=== PATIENT | male | born 1955 | race Caucasian/White ===

== ENCOUNTER 2019-07-15 09:06 | Outpatient (CLI) | payer MEDICARE, SELFPAY ==
--- NOTE | 2019-07-15 11:00 | NEURO_ITS ---
Patient Number: [id number] Impression: # Complains of numbness of hands. # Mild bilateral early Carpal Tunnel Syndrome. 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 # Needle/EMG exam suggestive of early denervation in ulnar muscles. Nerve Conduction Studies Anti Sensory Summary Table Stim Site NR Peak (ms) P-T Amp (?V) Site1 Site2 Delta-P (ms) Dist (cm) Bari (m/s) Left Median Anti Sensory (2-3nd Digit) Wrist 3.7 55.7 Wrist 2-3nd Digit 3.7 14.0 38 Wrist 3.5 58.3 Wrist 2-3nd Digit 3.7 14.0 38 Right Median Anti Sensory (2-3nd Digit) Wrist 4.0 50.1 Wrist 2-3nd Digit 4.0 14.0 35 Wrist 4.1 27.0 Wrist 2-3nd Digit 4.0 14.0 35 Left Radial Anti Sensory (Base 1st Digit) Wrist 2.8 52.0 Wrist Base 1st Digit 2.8 0.0 Right Radial Anti Sensory (Base 1st Digit) Wrist 3.2 17.9 Wrist Base 1st Digit 3.2 0.0 Left Ulnar Anti Sensory (5th Digit) Wrist 3.6 52.3 Wrist 5th Digit 3.6 14.0 39 Right Ulnar Anti Sensory (5th Digit) Wrist 3.3 29.5 Wrist 5th Digit 3.3 14.0 42 Motor Summary Table Stim Site NR Onset (ms) O-P Amp (mV) Site1 Site2 Delta-0 (ms) Dist (cm) Bari (m/s) Left Median Motor (Abd Poll Brev) Wrist 4.3 1.7 Elbow Wrist 5.5 31.0 56 Elbow 9.8 0.8 Right Median Motor (Abd Poll Brev) Wrist 4.5 4.3 Elbow Wrist 5.9 33.0 56 Elbow 10.4 2.2 Left Ulnar Motor (Abd Dig Minimi) Wrist 3.3 7.1 A Elbow Wrist 6.7 32.0 48 A Elbow 10.0 7.2 B Elbow Wrist 4.5 22.0 49 B Elbow 7.8 1.9 Right Ulnar Motor (Abd Dig Minimi) Wrist 3.4 6.7 A Elbow Wrist 7.0 31.0 44 A Elbow 10.4 5.5 B Elbow Wrist 4.5 22.0 49 B Elbow 7.9 5.5 F Wave Studies NR F-Lat (ms) L-R F-Lat (ms) Left Median (Mrkrs) (Abd Poll Brev) 30.79 0.41 Right Median (Mrkrs) (Abd Poll Brev) 31.20 0.41 Left Ulnar (Mrkrs) (Abd Dig Min) 29.66 1.31 Right Ulnar (Mrkrs) (Abd Dig Min) 30.97 1.31 EMG Side Muscle Nerve Root Ins Act Fibs Amp Dur Recrt Comment Right 1stDorInt Ulnar C8-T1 Nml Nml Nml >12ms Nml Right Ext Indicis Radial (Post Int) C7-8 Nml Nml Nml Nml Nml Right Ext Digitorum Radial (Post Int) C7-8 Nml Nml Nml Nml Nml Right BrachioRad Radial C5-6 Nml Nml Nml Nml Nml Right PronatorTeres Median C6-7 Nml Nml Nml Nml Nml Right Abd Poll Brev Median C8-T1 Nml Nml Nml Nml Nml Left 1stDorInt Ulnar C8-T1 Nml Nml Nml >12ms Nml Left Ext Indicis Radial (Post Int) C7-8 Nml Nml Nml Nml Nml Left Ext Digitorum Radial (Post Int) C7-8 Nml Nml Nml Nml Nml Left BrachioRad Radial C5-6 Nml Nml Nml Nml Nml Left PronatorTeres Median C6-7 Nml Nml Nml Nml Nml Left Abd Poll Brev Median C8-T1 Nml Nml Nml Nml Nml Right ABD Dig Min Ulnar C8-T1 Nml Nml Nml >12ms Nml Left ABD Dig Min Ulnar C8-T1 Nml Nml Nml >12ms Nml MTDD
== END 2019-07-15 09:07 | disposition home or self-care (01) ==
PROVIDERS: PCP Family Medicine; Visit Provider Orthopaedic Surgery
DX: M79.641 Pain in right hand (principal); G56.03 Carpal tunnel syndrome, bilateral upper limbs
CPT/HCPCS: 95886; 95911

== ENCOUNTER 2019-07-28 10:07 | Outpatient (CLI) | payer MEDICARE, SELFPAY ==
--- NOTE | 2019-07-28 | ECG_ITS ---
Measurements Intervals [place] Rate: 69 P: MD: 0 QRS: -21 QRSD: 98 T: -4 QT: 370 QTc: 399 Interpretive Statements SINUS RHYTHM WITH SINUS ARRHYTHMA ATRIAL PREMATURE COMPLEXES CANNOT RULE OUT SEPTAL INFARCT, AGE INDETERMINATE NONSPECIFIC ST ELEVATION IN ANTEROLATERAL LEADS- PROBABLY REPOLARIZATION BORDERLINE T WAVE ABNORMALITY- INFERIOR LEADS ABNORMAL ECG Electronically Signed On 07-28-2019 10:41:08 CDT by Shamar Macario D.O.
[2019-07-28 11:09] LABS: Blood Urea Nitrogen 12 mg/dL (9-20); Calcium 9.4 mg/dL (8.4-10.2); Carbon Dioxide 34 mmol/L (22-30); Chloride 101 mmol/L (98-107); Estimated Glomerular Filt Rate 56; Glucose 103 mg/dL (75-110); Sodium 139 mmol/L (137-145)
== END 2019-07-28 10:08 | disposition home or self-care (01) ==
LOC: ANHLAB 10:11
PROVIDERS: PCP Family Medicine; Visit Provider Orthopaedic Surgery
DX: I49.8 Other specified cardiac arrhythmias (principal); I10 Essential (primary) hypertension
CPT/HCPCS: 36415; 80048; 93005

== ENCOUNTER 2020-02-24 16:29 | Emergency (ER) | payer MEDICARE, SELFPAY ==
--- NOTE | ~2020-02-24 | XR_ITS ---
XR hand RT min 3V DATE: 02/24/2020 17:27 INDICATION: Fall. Multiple lacerations at fifth digit. TECHNIQUE: 3 views of right hand, plus additional lateral view of fifth digit with right hand COMPARISON: 06/06/2016 right hand FINDINGS: There is polyarticular osteoarthritis including the first metacarpophalangeal and multiple interphalangeal joints. There is juxta-articular osteopenia at the metacarpophalangeal and interphalangeal joints. Old healed avulsion fracture of the dorsal base of the distal phalanx of the fifth digit. No recent fracture or dislocation is evident. No periosteal reaction or bone destruction. No erosive change or chondrocalcinosis. No soft tissue radiopaque foreign body is detected. IMPRESSION: No fracture or dislocation detected; no radiopaque soft tissue foreign body Reviewed, dictated and finalized at location B. NESS OBJECTS CONSULTANT IMPRESSION: No fracture or dislocation detected; no radiopaque soft tissue fore ign body
[2020-02-24 17:03] VITALS: BP 164/104; PULSE 73; RESP 18; TEMP 37.5; O2SAT 97
[2020-02-24] MEDS: ACETAMINOPHEN 500 MG TABLET 1000 MG PO (17:27)
[2020-02-24] MEDS: TETANUS,DIPHTHERIA,AC PERTUSSIS ADULT (0.5 ML) BOOSTRIX IM (17:29)
--- NOTE | 2020-02-24 18:26 | ED.WOUNDLAC ---
HPI - Wound/Laceration General Chief Complaint: Wound/Laceration Stated Complaint: finger lac Time Seen by Provider: 02/24/20 16:47 Source: patient and family Mode of arrival: ambulatory Limitations: no limitations History of Present Illness HPI narrative: This patient is a 64 year old male who presents for evaluation of right hand lacerations. He states he accidentally got his fingers caught in the trash can. He denies hitting his head or headache. He has no other complaints. He is unsure of his last tetanus. He denies any numbness or tingling. Related Data Allergies Allergy/AdvReac Type Severity Reaction Status Date / Time No Known Allergies Allergy Verified 02/24/20 16:52 Review of Systems Review of Systems: All systems reviewed & are unremarkable except as noted in HPI and below PMFSH Past Medical History Medical History (Updated 02/24/20 @ 20:53 by Belinda Johnson MD) Epilepsy Essential hypertension Hypothyroidism, unspecified Surgical History Surgical History (Updated 02/24/20 @ 18:27 by Belinda Johnson MD) H/O prostatectomy Hx of tonsillectomy Family History Family History Sibling Cerebrovascular accident Family history of diabetes mellitus in first degree relative Father Family history of lung cancer Other Hypertension Social History Social History Smoking status: Never smoker Alcohol intake: never Gender identity (if verbalized by the patient): Male Exam Const: General: no acute distress and alert Orientation/consciousness: patient oriented x3 HENMT: Head: normocephalic and atraumatic Face and sinus: face symmetric Eyes: Pupils: Equal, round and reactive pupils present EOM: EOMs intact bilaterally Neck: Neck: normal visual inspection and no lymphadenopathy Resp: Effort & Inspection: normal respiratory effort and no retractions Auscultation: clear to auscultation bilaterally Cardio: Rate: regular rate Rhythm: regular rhythm Heart sounds: no murmurs GI: GI Palp: Yes Soft to palpation, No Tenderness to palpation present (GI) and No Guarding due to palpation present (GI) Auscultation: normal bowel sounds Neuro: General: patient oriented x3 and moves all extremities Other: hand tremor resting Extrem: Other: right hand - subungal ecchymosis right thumb; irregular laceration on proximal 5th finger on palmar aspect approximate 2 cm - able to seen tendon intact, no bleeding, able to flex and extend finger; there is puncture wound to 5th finger pad; 1 cm laceration of finger pad 4th finger palmar aspect, not deep Psych: Mental Status: mental status grossly normal Affect: normal affect Attitude: cooperative Course Reevaluation(s) Reevaluation #1: I have discussed with patient xray and discharge instructions. Date: 02/24/20 Time: 20:15 Vital Signs Vital signs: Vital Signs Temperature 99.5 F 02/24/20 17:03 Pulse Rate 73 02/24/20 17:03 Respiratory Rate 18 02/24/20 17:03 Blood Pressure 164/104 H 02/24/20 17:03 Pulse Oximetry 97 02/24/20 17:03 Temperature 99.6 F 02/24/20 18:58 Pulse Rate 76 02/24/20 21:16 Respiratory Rate 20 02/24/20 21:16 Blood Pressure 131/88 02/24/20 21:16 Pulse Oximetry 95 02/24/20 21:16 Procedures Laceration Laceration 1: Date: 02/24/20 Time: 19:45 Site: hand (right 5th finger) Side (If applicable): right Size (cm): 2 Description: flap and irregular Depth: simple, single layer Local Anesthetic: lidocaine 2% and none (digit block) Amount of anesthesia used (mL): 3 Pre-repair: irrigated, minor debridement and deep structures intact ====== Skin Level ====== Skin layer closed with: prolene Size (cm): 4-0 Number of sutures: 9 Technique: simple, interrupted ====== Subcutaneous Layer ======
[2020-02-24 18:58] VITALS: BP 136/94; PULSE 75; RESP 18; TEMP 37.6; O2SAT 96
[2020-02-24 21:16] VITALS: BP 131/88; PULSE 76; RESP 20; O2SAT 95
== END 2020-02-24 21:18 | disposition home or self-care (01) ==
PROVIDERS: Emergency Provider General Practice; PCP Family Medicine
DX: S61.216A Laceration without foreign body of right little finger without damage to nail, initial encounter (principal); S61.214A Laceration without foreign body of right ring finger without damage to nail, initial encounter; S60.111A Contusion of right thumb with damage to nail, initial encounter; G40.909 Epilepsy, unspecified, not intractable, without status epilepticus; I10 Essential (primary) hypertension; E03.9 Hypothyroidism, unspecified; Z23 Encounter for immunization; W23.0XXA Caught, crushed, jammed, or pinched between moving objects, initial encounter
CPT/HCPCS: 12002; 73130; 90471; 90715; 99283; A9270

== ENCOUNTER 2020-05-10 16:10 | Outpatient (CLI) | payer MEDICARE, SELFPAY ==
--- NOTE | ~2020-05-10 | XR_ITS ---
EXAMINATION: [id number] EXAM DATE: 05/10/2020 17:02 INDICATION: Initial encounter following injury, with pain of the right ribs. TECHNIQUE: Frontal projection of the upper right ribs, frontal projection of the lower right ribs, ob lique projection of the right ribs, frontal chest x-ray(s) for interpretation. There is no prior mi dy for comparison. FINDINGS: There is acute closed posttraumatic nondisplaced fracture of the right 8th rib laterally. T his finding has been indicated, marked on the examination for review, clinical correlation. There i s right 11th rib fracture laterally which appears likely healed, chronic. There is no soft tissue ab normality seen. No confluent consolidation, pneumothorax or pleural effusion suspected. Cardiomediast inal silhouette is normal. Pack for what is most likely deep brain stimulator. IMPRESSION: Acute right 8th rib fracture laterally. Reviewed, dictated and finalized at location A.
== END 2020-05-10 16:11 | disposition home or self-care (01) ==
LOC: ANHIMG 16:22
PROVIDERS: PCP Family Medicine; Visit Provider Nurse Practitioner Family
DX: R07.89 Other chest pain (principal); S22.31XA Fracture of one rib, right side, initial encounter for closed fracture; X58.XXXA Exposure to other specified factors, initial encounter
CPT/HCPCS: 71101

== ENCOUNTER 2020-11-24 13:30 | Outpatient (RCR) | payer MEDICARE, SELFPAY ==
--- NOTE | 2020-09-14 16:23 | PTOPEVAL ---
Thank you for referring Joshua Armijo to [facility].? The patient is scheduled to be seen for therapy? 1-2 x/week for 8 weeks. Please review, sign, date and return this plan of care FLOWER. I agree with and certify that the following plan of care is medically necessary. Referring Physician Date Attending Provider: Lynette Saha NP Diagnosis fall. Additional Evaluation Detail He was pushing carts at the [employer] when he had a fall 2017. He uses a quad cane for mobility. 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 Subjective Information He has 3 falls a month.Falls Query Text:As Reported By Patient/ happen with walking. He denies Family any previous therapy to address his falls. He will walk in the house at times without the cane. He spends most of his day sitting with no regular fitness or walking program. He only leaves the house for pentecostalism or doctor's visits. Prior Level of Function Home Setting Home Type Condo/Duplex/Townhouse Environmental Barriers Radha, Carpet,Radha, Hardwood,Stairs, None Living Situation With Spouse Support Available Local Family Support,Physical Assist Available Mobility Assistive Devices (Used Last 3 Cane, Small Based Quad Months) Pain Assessment Self Report Self Report Pain Level 0 Lower Extremity Muscle Strength Testing General Lower Extremity Strength Gross Lower Extremity Strength grossly 5/5 except yenifer hip ext and abduction 3+/5 Upper Motor Neuron Tests Upper Motor Neuron Tests Left Upper Motor Neuron Tests tremors of right hand Balance Assessment Leong Balance Assessment LEONG Balance Evaluation Total Score (34/56 points) Time Up Go (TUG) Timed Up and Go Test (TUG) (Seconds) 18 Assistive Devices None Functional Reach Test Functional Reach Test Trial 1 (Inches) 10 Functional Reach Test Trial 2 (Inches) 10 Functional Reach Test Average Score ( 10.0 Inches) Functional Reach Test Fall Risk Unlikely to Fall Gait Assessment Gait Assessment Ambulation Assistive Devices Cane, Small Base Quad Ambulation Distance 130 Query Text:(Feet) Additional Ambulation Comments poor sequencing with cane loss of balance, but able to recover without assistance Gait Pattern A
--- NOTE | 2020-10-13 13:33 | PCPTNOTE ---
Patient called & cancelled scheduled appointment this date due to falling.
--- NOTE | 2020-10-20 13:22 | PCPTNOTE ---
Patient did not show up for scheduled appointment this date.
--- NOTE | 2020-10-27 12:17 | PTOPEVAL ---
Physical Therapy progress note Thank you for referring Joshua Armijo to [facility].? See summary below for detail for progress and updated goals. The patient is scheduled to be seen for therapy?1 x/week for 4 weeks. Please review, sign, date and return this plan of care FLOWER. I agree with and certify that the following plan of care is medically necessary. Referring Physician Date Attending Provider: Lynette Saha NP Diagnosis fall. Additional Evaluation Detail He was pushing carts at the [employer] when he had a fall 2017. He uses a quad cane for mobility. 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 Subjective Information He had a fall last week when Query Text:As Reported By Patient/ carrying something without his Family walker. He does not use a device in the house. He only uses the ww when outside. Pain Assessment Timing of Pain Assessment Timing of Pain Assessment Re-assessment Self Report Self Report Pain Level 0 Pain Score Pain Score 0: Self Report Lower Extremity Muscle Strength Testing General Lower Extremity Strength Gross Lower Extremity Strength yenifer hip ext improved to 4/5 and yenifer abduction remains: 3+/ 5 Balance Assessment BURR Balance Evaluation Total Score (32/56 points) Time Up Go (TUG) Timed Up and Go Test (TUG) (Seconds) 30 Assistive Devices Walker, Wheeled Comments walked past target with decreased balance and safety TUG without AD: 18 sec 5 Time Sit to Stand Time in Seconds 21 5 Time Sit to Stand Comments without UE support Gait Assessment Gait Pattern Assessment Gait Pattern Ataxic Gait,Shuffled Gait,Wide Based Gait Gait Pattern Observed Decreased Stride Length - Left ,Decreased Stride Length - Right,Decreased Weight Shift - Left,Excessive Knee Flex - Right,No Heel Strike - Left,No Heel Strike - Right Other Gait Observations yenifer LE ext. rotation with left > right, lacks clearance of right LE during gt cycle 2 Minute Walk Total Distance Walked (feet) 193 2 Minute Walk Gait Speed Score (feet/ 1.60 second) 2 Minute Walk Test Comments use of ww PT Clinical Summary Pt referred to therapy due to
--- NOTE | 2020-11-24 14:46 | PTOPEVAL ---
Physical Therapy Discharge Summary Thank you for referring Joshua Armijo to [facility].? Joshua has reached maximal potential with skilled therapy services at this time. Will DC skilled therapy services with recommendations for continued HEP, use of walker 100% and slowing movement to decrease risk for falls. Please review, sign, date and return this discharge summary FLOWER. I agree with and certify that the following plan of care is medically necessary. Referring Physician Date Attending Provider: Lynette Saha NP Diagnosis fall. Additional Evaluation Detail He was pushing carts at the [employer] when he had a fall 2017. He uses a quad cane for mobility. 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 Subjective Information He continues to demonstrate 3+ Query Text:As Reported By Patient/ falls a month per . He Family refuses to use the walker in the house. He does feel like he is able to walk better on level surfaces and steps. He is performing his HEP, but only performing 2 of the exercises. Lower Extremity Muscle Strength Testing General Lower Extremity Strength Gross Lower Extremity Strength yenifer hip ext improved to 4+/5 and yenifer abduction remains: 4-/ 5 Transfer Assessment Chair Transfer Assessment Ambulation Assistive Devices Walker, Wheeled Chair Transfer Comments poor balance with initial sit< >stand from chair in lobby with cues for safety, improved technique and balance during remaining treatment. Poor insight to safety, balance and impairments. Floor Transfer Assessment Ambulation Assistive Devices None Floor Transfer Destination Mat Sit to Floor Transfer Ability Independent Floor to Sit Transfer Ability Independent Stand to Floor Transfer Ability Independent Floor to Stand Transfer Ability Independent Floor Transfer Ability Independent Balance Assessment BURR Balance Evaluation Total Score (33/56 points) Time Up Go (TUG) Timed Up and Go Test (TUG) (Seconds) 29 Assistive Devices Walker, Wheeled Comments decreased balance and safety unless cues provided, then demo improved safety with slowing of task and movement TUG without
== END 2020-11-26 08:50 | disposition home or self-care (01) ==
LOC: ANHPT 13:30
PROVIDERS: PCP Family Medicine; Visit Provider Nurse Practitioner Family
DX: R07.89 Other chest pain (principal); W19.XXXD Unspecified fall, subsequent encounter; Z68.26 Body mass index [BMI] 26.0-26.9, adult
CPT/HCPCS: 97110; 97112; 97116; 97163; 97530

== ENCOUNTER 2021-01-04 09:28 | Outpatient (CLI) | payer MEDICARE, SELFPAY ==
[2021-01-04 10:02] LABS: Basophils Absolute Auto 0.1 K/mm3 (0.0-0.1); Basophils Percent Auto 0.9 % (0.2-1.2); Eosinophils Absolute Auto 0.1 K/mm3 (0-0.3); Eosinophils Percent Auto 1.4 % (0-4.4); Hemoglobin 17.1 g/dL (14.0-18.0); Immature Granulocyte Absolute 0.07 K/mm3 (0.00-0.031); Immature Granulocyte Percent A 1.1 % (0-0.5); Lymphocytes Absolute Auto 1.41 K/mm3 (0.9-3.2); Lymphocytes Percent Auto 21.6 % (18.3-44.2); Mean Corpuscular HGB Conc 32.9 g/dl (32-36); Mean Corpuscular Hemoglobin 30.8 pg (26-34); Mean Corpuscular Volume 93.5 fl (80-100); Mean Platelet Volume 9.5 fl (7.4-10.4); Monocytes Absolute Auto 0.7 K/mm3 (0.1-0.6); Monocytes Percent Auto 11.3 % (2.6-8.5); Neutrophils Absolute Auto 4.2 K/mm3 (1.3-6.7); Neutrophils Percent Auto 63.7 % (45.5-73.1); Platelet Count Result 201 k/mm3 (150-375); Red Blood Count 5.56 M/mm3 (4.6-6.20); Red Cell Distribution Width 13.1 % (11.5-14.5); White Blood Count 6.5 K/mm3 (4.5-10.0)
[2021-01-04 10:15] LABS: Anion Gap 8 mmol/L (8-16); Blood Urea Nitrogen 13 mg/dL (9-20); Calcium 9.3 mg/dL (8.4-10.2); Carbon Dioxide 29 mmol/L (22-30); Chloride 101 mmol/L (98-107); Cholesterol 128 mg/dL (0-200); Estimated Glomerular Filt Rate > 60; Glucose 101 mg/dL (65-110); HDL Direct 37 mg/dL; Potassium 4.2 mmol/L (3.4-5.0); Sodium 138 mmol/L (137-145); Triglycerides 107 mg/dL (<150)
[2021-01-04 10:26] LABS: LDL Cholesterol Direct 69 mg/dL
[2021-01-04 10:46] LABS: Prostate Specific Antigen < 0.1 ng/mL (< OR = 4.0)
== END 2021-01-04 09:29 | disposition home or self-care (01) ==
PROVIDERS: PCP Family Medicine; Visit Provider Physician Assistant Medical
DX: E03.9 Hypothyroidism, unspecified (principal); Z13.220 Encounter for screening for lipoid disorders; I10 Essential (primary) hypertension; C61 Malignant neoplasm of prostate
CPT/HCPCS: 36415; 80048; 80061; 84153; 84443; 85025

== ENCOUNTER 2021-03-19 19:13 | Emergency (ER) | payer MEDICARE, SELFPAY ==
[2021-03-19 19:16] VITALS: BP 130/81; PULSE 87; RESP 18; TEMP 35.8; O2SAT 97
--- NOTE | 2021-03-19 20:54 | PC.NURSE ---
attempted to give urine sample but was not enough to sent to lab. blood tinge and small clot noted in the small sample.
--- NOTE | 2021-03-19 21:36 | ED.MALEGU ---
HPI - Male Genitourinary General Chief complaint: Urogenital-Male Stated complaint: hematuria Time Seen by Provider: 03/19/21 21:35 Source: patient Mode of arrival: ambulatory Limitations: no limitations History of Present Illness HPI Narrative: Patient is 65 years old white male presented to the ED with blood in the urine noticed earlier today. Patient had similar history of unknown etiology. Patient denies any fever, chills, nausea, vomiting, abdominal pain. Patient been following with urologist for unknown reason patient does not take blood thinner at home Related Data Home Medications Medication Instructions Recorded Confirmed lacosamide 200 mg tablet 200 mg PO Q12H 12/23/20 01/03/21 Allergies Allergy/AdvReac Type Severity Reaction Status Date / Time No Known Allergies Allergy Verified 03/19/21 19:19 Review of Systems Review of Systems: CONSTITUTIONAL: Denies fever, chills, or sweats. EYES: Denies visual changes, redness, or discharge. ENT: Denies rhinorrhea, congestion, sore throat, or otalgia. CARDIOVASCULAR: Denies chest pain, palpitations, or edema. RESPIRATORY: Denies cough or dyspnea. GASTROINTESTINAL: Denies abdominal pain, nausea, vomiting, or diarrhea. GENITOURINARY: Denies dysuria or hematuria. SKIN: Denies rash or itching. MUSCULOSKELETAL: Denies back pain, joint pain, or myalgia. NEUROLOGIC: Denies headache, numbness, or weakness. PSYCHIATRIC: Denies anxiety or depression. 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 Musculoskeletal: Normal range of motion, nontender back Neurologic: Alert and oriented ?3, CAR HIKER is normal as tested, no gross motor deficit Course Course Emergency Course: Stable Vital Signs Vital signs: Vital Signs Temperature 35.8 C L 03/19/21 19:16 Pulse Rate 87 03/19/21 19:16 Respiratory Rate 18 03/19/21 19:16 Blood Pressure 130/81 03/19/21 19:16 Pulse Oximetry 97 03/19/21 19:16 Temperature 35.8 C L 03/19/21 19:16 Pulse Rate 90 03/19/21 21:41 Respiratory Rate 18 03/19/21 21:41 Blood Pressure 136/81 03/19/21 21:41 Pulse Oximetry 95 03/19/21 21:41 MDM - Male Genitourinary MDM Narrative Medical decision making narrative: Patient presents with hematuria Differential Diagnosis Differential diagnosis: Likely urinary tract infection and acute retention of
[2021-03-19 21:41] VITALS: BP 136/81; PULSE 90; RESP 18; O2SAT 95
[2021-03-19 21:57] LABS: Add Urine Microscopic? YES; Appearance Urine Cloudy (Clear); Bilirubin Urine Negative (Negative); Blood Urine 3+ (Negative); Color Urine Yellow (Yellow); Glucose Urine UA Negative (Negative); Ketones Urine Negative (Negative); Leukocyte Esterase Ur Trace LEU/UL (Negative); Nitrate Urine Negative (Negative); Protein Urine 3+ mg/dL (Negative); RBC Urine >75 /hpf (0-2); Urobilinogen Urine Negative mg/dL (<2.0); WBC Urine >75 /hpf
[2021-03-19] MEDS: CIPROFLOXACIN 500 MG TAB PO (22:34)
[2021-03-19] MEDS: SODIUM CHLORIDE 0.9% IV 1,000 ML 999 ML IV CONT (22:35)
[2021-03-19 22:38] LABS: Basophils Absolute Auto 0.1 K/mm3 (0.0-0.1); Basophils Percent Auto 0.6 % (0.2-1.2); Eosinophils Absolute Auto 0.2 K/mm3 (0-0.3); Eosinophils Percent Auto 1.7 % (0-4.4); Hematocrit 48.1 % (42.0-52.0); Hemoglobin 16.2 g/dL (14.0-18.0); Immature Granulocyte Absolute 0.05 K/mm3 (0.00-0.031); Immature Granulocyte Percent A 0.5 % (0-0.5); Lymphocytes Absolute Auto 1.25 K/mm3 (0.9-3.2); Lymphocytes Percent Auto 11.9 % (18.3-44.2); Mean Corpuscular HGB Conc 33.7 g/dl (32-36); Mean Corpuscular Hemoglobin 30.8 pg (26-34); Mean Corpuscular Volume 91.4 fl (80-100); Mean Platelet Volume 9.8 fl (7.4-10.4); Monocytes Absolute Auto 1.3 K/mm3 (0.1-0.6); Neutrophils Absolute Auto 7.7 K/mm3 (1.3-6.7); Neutrophils Percent Auto 73.3 % (45.5-73.1); Platelet Count Result 200 k/mm3 (150-375); Red Blood Count 5.26 M/mm3 (4.6-6.20); Red Cell Distribution Width 12.8 % (11.5-14.5); White Blood Count 10.5 K/mm3 (4.5-10.0)
[2021-03-19 22:49] LABS: Anion Gap 3 mmol/L (8-16); Blood Urea Nitrogen 16 mg/dL (9-20); Calcium 9.3 mg/dL (8.4-10.2); Carbon Dioxide 31 mmol/L (22-30); Chloride 104 mmol/L (98-107); Estimated CRCL calculation 60 ml/min; Estimated Glomerular Filt Rate > 60; Glucose 128 mg/dL (65-110); Potassium 4.1 mmol/L (3.4-5.0); Sodium 138 mmol/L (137-145)
[2021-03-19 23:35] VITALS: BP 132/98; PULSE 68; RESP 16; O2SAT 98
== END 2021-03-19 23:49 | disposition home or self-care (01) ==
PROVIDERS: Emergency Provider Emergency Medicine; PCP Family Medicine
DX: N39.0 Urinary tract infection, site not specified (principal); R31.9 Hematuria, unspecified; G40.909 Epilepsy, unspecified, not intractable, without status epilepticus; E03.9 Hypothyroidism, unspecified; I10 Essential (primary) hypertension; Z90.79 Acquired absence of other genital organ(s)
CPT/HCPCS: 36415; 80048; 81001; 85025; 87086; 87088; 96360; 99283; A9270; J7030

== ENCOUNTER 2022-02-15 11:32 | Observation (INO) | payer MEDICARE, SELFPAY ==
--- NOTE | ~2022-02-15 | US_ITS ---
Procedure: Duplex Doppler examination of the bilateral carotids. Indication: CVA Technique: Real time, color-flow and pulse wave Doppler examination of the bilateral carotids was performed. Findings: Wesley scale ultrasonography of the right neck demonstrated small to moderate plaques at the carotid bu lb. There was demonstration of normal color-flow and Doppler waveforms within the right common, inter nal and external carotid arteries. The peak systolic velocities in the right common, internal and ext ernal carotid arteries were demonstrated to be 105 cm/sec, 98 cm/sec and 57 cm/sec respectively. The right ICA/CCA ratio was 1.2.The proximal right internal carotid artery demonstrates 0% stenosis relat елена to the normal distal artery lumen diameter. Wesley scale sonography of the left neck demonstrated small to moderate plaques at the carotid bulb. Th ere was demonstration of normal color-flow and wave forms within the left common, internal and wheelabrator operator al carotid arteries. The peak systolic velocities in the left common, internal and external carotid a rteries were demonstrated to be 89cm/sec, 96 cm/sec and 109 cm/sec respectively. The left ICA/CCA rat io was 1.4. The proximal left internal carotid artery demonstrates 0% stenosis relative to the normal distal artery lumen diameter. There was antegrade flow demonstrated in the bilateral vertebral arteries. Impression: No hemodynamically significant stenosis of the bilateral internal carotid arteries. Antegrade flow in the bilateral vertebral arteries. Note: The methodology used is an indirect measurement validated against a direct method (such as the NASCET criteria) that compares diameters at the stenosis to the distal ICA. Reviewed, dictated and finalized at location . SSRS DEVELOPER Impression: No hemodynamically significant stenosis of the bilateral internal carotid arter ies. Antegrade flow in the bilateral vertebral arteries. Note: The methodology used is an indirect measurement validated against a direct meth od (such as the NASCET criteria) that compares diameters at the stenosis to the distal ICA.
--- NOTE | ~2022-02-15 | CT_ITS ---
EXAMINATION: CT brain wo con DATE: 02/15/2022 16:08 INDICATION: head injury . TECHNIQUE: Computed tomography (CT) of the head was performed without intravenous contrast. The mA wa s adjusted according to patient size. Iterative reconstruction technique was employed. The dose-lengt h product was 681.00 mGy-cm. COMPARISON: None. FINDINGS: No acute intracranial hemorrhage or extra-axial fluid collection. No hydrocephalus, mass, or herniation. Loss of hitchcock-white differentiation in the left POURER METAL territory. Unremarkable dural venous sinus attenuation. No acute osseous abnormality. The aerated spaces are clear. IMPRESSION: CT findings concerning for acute left POURER METAL infarct. Results reported telephonically to Dr. Johnson by Dr. Sal at 4:17 PM on 02/07/2022. Reviewed, dictated and finalized at location K. MAKER IMPRESSION: CT findings concerning for acute left POURER METAL infarct. Results reported telephonically to Dr. Johnson by Dr. Sal at 4:17 PM on 02/07.
--- NOTE | ~2022-02-15 | XR_ITS ---
EXAM: XR humerus RT DATE: 02/15/2022 16:04 HISTORY: pain IN RT HUMERUS HEAD, FALL X 1 WK . COMPARISON: None available. FINDINGS: Normal mineralization. No fracture or dislocation. No lytic or blastic lesion. Degenerativ e changes in the shoulder, AC joint, and elbow. Mildly displaced right lateral rib fracture, likely r ib 7 or 8. No erosion or periosteal change. Soft tissues within normal limits. IMPRESSION: No acute osseous finding in the right humerus. Mildly displaced right lateral rib fractur e. Reviewed, dictated and finalized at location K. ER CHIEF DELIVERY IMPRESSION: No acute osseous finding in the right humerus. Mildly displaced rig ht lateral rib fracture.
--- NOTE | ~2022-02-15 | XR_ITS ---
EXAMINATION: XR ribs RT 2V w CXR 2V INDICATION: Right-sided rib pain after fall TECHNIQUE: PA and lateral views of the chest and 3 views of the right ribs were obtained. COMPARISON: 09/06/2015 FINDINGS: The lungs are free of acute opacities. There is a small right pleural effusion. No pneumoth orax is identified. An electronic device is implanted in the left chest wall with its lead coursing i nto the left neck. There is mild thoracic spondylosis. There is an acute, minimally displaced fractur e at the lateral aspect of the right eighth rib. The fracture fragment is displaced approximately one half shaft width. IMPRESSION: 1. Acute, minimally displaced fracture at the lateral aspect of the right eighth rib. 2. Small right pleural effusion. Reviewed, dictated and finalized at location B. Y WHEEL WORKER IMPRESSION: 1. Acute, minimally displaced fracture at the lateral aspect of the right eight h rib. 2. Small right pleural effusion.
--- NOTE | ~2022-02-15 | CT_ITS ---
EXAMINATION: CT diagnostic chest wo con DATE: 02/15/2022 16:10 INDICATION: right rib pain, fall TECHNIQUE: Computed tomography (CT) of the chest was performed with 100 mL Omnipaque-350 intravenous contrast. Automated exposure control and iterative reconstruction technique were employed. The dose-l ength product was 274.97 mGy-cm. COMPARISON: 12/04/2014. FINDINGS: CHEST: Thoracic aorta: Mild arch calcification. Lung parenchyma and airways: Mild peripheral and basal ground glass opacity in the right lower lobe m ay reflect atelectasis or small contusion. Thoracic inlet, axillae and chest wall: No thyroid or soft tissue mass. Electronic device in the soft tissues of the left upper chest with leads coursing superiorly into the left neck. No axillary lymph adenopathy. Mediastinum: No mass or lymphadenopathy. Heart and pericardium: Normal heart size. No pericardial effusion. Coronary artery calcifications: Moderate. Pleura: No effusion or mass. Upper abdomen: No significant finding. Thoracic bones: Mildly displaced right lateral eighth rib fracture. IMPRESSION: Mildly displaced right lateral eighth rib fracture. Mild right basilar lung contusion versus atelecta sis. Reviewed, dictated and finalized at location K. TRUCK DRIVER IMPRESSION: Mildly displaced right lateral eighth rib fracture. Mild right basilar lung con tusion versus atelectasis.
[2022-02-15 11:58] VITALS: BP 124/80; PULSE 96; RESP 18; TEMP 37.1; O2SAT 96
--- NOTE | 2022-02-15 15:52 | ED.FALL ---
HPI - Fall General Chief Complaint: Fall Stated Complaint: RIB PAIN S/P FALL 1 WK AGO Time Seen by Provider: 02/15/22 15:29 Source: patient and RN notes reviewed Mode of arrival: ambulatory Limitations: no limitations History of Present Illness HPI Narrative: This is a 66 year old male who presents for evaluation of right arm pain and right rib pain s/p fall. Patient states 1 week ago he fell into a wall. He hit his head, right arm and right side of wall. He denies LOC or headache. His reports his right arm was bruised all over, and he has right lateral rib pain. He states he called his PCP and he was told to come to ER for evaluation before his follow up visit on Sunday. He reports pain worse with cough. He denies shortness of breath, dizziness, or lightheadedness. He reports history of seizures and his last seizure was 5 years ago of a neurostimulator was placed, Related Data Home Medications Medication Instructions Recorded Confirmed lacosamide 200 mg tablet 100 mg PO Q12H 12/16/21 12/16/21 oxybutynin chloride 15 mg 15 mg PO DAILY 12/16/21 12/16/21 tablet,extended release 24 hr Allergies Allergy/AdvReac Type Severity Reaction Status Date / Time No Known Allergies Allergy Verified 02/15/22 12:01 Review of Systems Constitutional: Constitutional: Denies weakness Cardiovascular: Cardiovascular: Denies syncope, Denies rapid heart rate, Denies irregular heart rhythm, Denies leg edema and Denies dyspnea Respiratory: Respiratory: Denies chest congestion, Denies hemoptysis, Denies excessive phlegm production and Denies dyspnea Gastrointestinal: Gastrointestinal: Denies abdominal pain, Denies hematochezia, Denies diarrhea and Denies vomiting Genitourinary: Genitourinary: Denies hematuria, Denies dysuria, Denies penile discharge and Denies testicular pain Musculoskeletal: Musculoskeletal: Denies joint swelling, Denies loss of height and Denies muscle weakness Neurologic: Denies syncope, Denies focal weakness and Denies weakness PMFSH Past Medical History Medical History (Updated 02/15/22 @ 20:04 by Belinda Johnson MD) BMI 26.0-26.9,adult Epilepsy Essential hypertension Hypothyroidism, unspecified Irritable bowel syndrome with diarrhea Presence of brain neurostimulator device Surgical History Surgical History H/O prostatectomy Hx of tonsillectomy Family History Family History Sibling Cerebrovascular accident Family history of diabetes mellitus in first degree relative Father Family history of lung cancer Mother Low oxygen saturation Other Hypertension Social History Social History Smoking status: Never smoker Second hand tobacco smoke exposure: No Alcohol intake: never Substance use: never Substance use type: does not use 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 [employer] Gender identity (if verbalized by the patient): Male Exam Const: General: no acute distress and alert Nutritional Appearance: well nourished Orientation/consciousness: patient oriented x3 HENMT: Head: normal to inspection Face/Nose/Sinus: Normal external nose present Mouth: Yes Normal oral and palatal mucosa present Eyes: EOM: EOMs intact bilaterally Neck: Neck: normal visual inspection Chest: Chest palpation & inspection: tenderness rib (right lateral) Resp: Effort & Inspection: normal respiratory effort Auscultation: clear to auscultation bilaterally Cardio: Rate: regular rate Rhythm: regular rhythm Heart sounds: no murmurs GI: GI Palp: Yes Soft to palpation, No Tenderness to palpation present (GI), No Guarding due to palpation present (GI) and No Rigid due to palpation Skin: General skin exam: normal color Rashes: no rashes Wounds: no wounds Neuro: General: patient oriented x3, moves all extrem
--- NOTE | 2022-02-15 16:26 | ECG_ITS ---
Measurements Intervals [place] Rate: 69 P: 240 DE: 157 QRS: -51 QRSD: 80 T: 66 QT: 391 QTc: 419 Interpretive Statements SINUS RHYTHM BASELINE ARTIFACT NONSPECIFIC ST ABNORMALITY LEFT ANTERIOR FASCICULAR BLOCK NONSPECIFIC ST & T-WAVE ABNORMALITY ABNORMAL ECG COMPARED TO ECG 07/28/2019 10:37:43 LEFT ANTERIOR FASCICULAR BLOCK NOW PRESENT T-WAVE ABNORMALITY NOW PRESENT Electronically Signed On 02-15-2022 17:05:26 SEPARATING MACHINE OPERATOR by Armand Redding M.D.
[2022-02-15 16:52] LABS: Basophils Absolute Auto 0.1 K/mm3 (0.0-0.1); Basophils Percent Auto 1.1 % (0.2-1.2); Eosinophils Absolute Auto 0.2 K/mm3 (0-0.3); Eosinophils Percent Auto 2.3 % (0-4.4); Hematocrit 48.6 % (42.0-52.0); Hemoglobin 16.4 g/dL (14.0-18.0); Immature Granulocyte Absolute 0.05 K/mm3 (0.00-0.031); Immature Granulocyte Percent A 0.8 % (0-0.5); Lymphocytes Absolute Auto 1.14 K/mm3 (0.9-3.2); Lymphocytes Percent Auto 17.5 % (18.3-44.2); Mean Corpuscular HGB Conc 33.7 g/dl (32-36); Mean Corpuscular Hemoglobin 30.5 pg (26-34); Mean Corpuscular Volume 90.3 fl (80-100); Mean Platelet Volume 9.6 fl (7.4-10.4); Monocytes Absolute Auto 0.8 K/mm3 (0.1-0.6); Neutrophils Absolute Auto 4.3 K/mm3 (1.3-6.7); Neutrophils Percent Auto 66.3 % (45.5-73.1); Platelet Count Result 215 k/mm3 (150-375); Red Blood Count 5.38 M/mm3 (4.6-6.20); Red Cell Distribution Width 12.5 % (11.5-14.5); White Blood Count 6.5 K/mm3 (4.5-10.0)
[2022-02-15 17:03] LABS: Alanine Aminotransferase 52 U/L (6-50); Albumin Level 4.4 g/dL (3.5-5.1); Alkaline Phosphatase 63 U/L (38-126); Anion Gap 7 mmol/L (8-16); Aspartate Amino Transferase 46 U/L (17-59); Bilirubin,Total 0.5 mg/dL (0.2-1.3); Blood Urea Nitrogen 13 mg/dL (9-20); Calcium 8.9 mg/dL (8.4-10.2); Carbon Dioxide 31 mmol/L (22-30); Chloride 103 mmol/L (98-107); Estimated CRCL calculation 70 ml/min; Estimated Glomerular Filt Rate > 60; Glucose 80 mg/dL (65-110); Potassium 3.8 mmol/L (3.4-5.0); Sodium 141 mmol/L (137-145)
[2022-02-15 17:14] LABS: INR 1.1; Prothrombin Time 13.9 Seconds (11.1-14.7)
[2022-02-15 17:15] LABS: Partial Thromboplastin Time 32.8 SECONDS (22.3-36.8)
--- NOTE | 2022-02-15 19:51 | PM.IMHP ---
H&P: HPI History of Present Illness Date/Time: 02/15/22 19:51 Chief Complaint: Fall Narrative: This is a 66-year-old male with past medical history significant for epilepsy status post remote implant of brain neurostimulator, essential hypertension, irritable bowel syndrome. Patient suffered a mechanical fall at home when he tried to sit on a chair duct got away from him fell to the side striking his ribcage on the right side has not been able to get in to see his primary care physician who instructed him to come to the emergency room due to pain in the ribcage area. Patient has had ribcage pain denies any fevers, rigors, chills, cough, sputum production. Incidentally patient was found to have left posterior cerebral artery area suspicious for infarct obstructive was called [facility] were patient usually gets his care and suggested patient to be placed on observation no intervention at this time. A chest x-ray was reported as: FINDINGS: The lungs are free of acute opacities. There is a small right pleural effusion. No pneumothorax is identified. An electronic device is implanted in the left chest wall with its lead coursing into the left neck. There is mild thoracic spondylosis. There is an acute, minimally displaced fracture at the lateral aspect of the right eighth rib. The fracture fragment is displaced approximately one half shaft width. IMPRESSION: 1. Acute, minimally displaced fracture at the lateral aspect of the right eighth rib. 2. Small right pleural effusion. A CT of the head: FINDINGS: No acute intracranial hemorrhage or extra-axial fluid collection. No hydrocephalus, mass, or herniation. Loss of hitchcock-white differentiation in the left WATCHGUARD territory. Unremarkable dural venous sinus attenuation. No acute osseous abnormality. The? aerated spaces are clear. IMPRESSION:? CT findings concerning for acute left WATCHGUARD infarct. CT high-resolution of the chest was reported as: CHEST: Thoracic aorta: Mild arch calcification. Lung parenchyma and airways: Mild peripheral and basal ground glass opacity in the right lower lobe may reflect atelectasis or small contusion. Thoracic inlet, axillae and chest wall: No thyroid or soft tissue mass. Electronic device in the soft tissues of the left upper chest with leads coursing superiorly into the left neck. No axillary lymphadenopathy. Mediastinum: No mass or lymphadenopathy. Heart and pericardium: Normal heart size. No pericardial effusion. Coronary artery calcifications: Moderate. Pleura: No effusion or mass. Upper abdomen: No significant finding. Thoracic bones: Mildly displaced right lateral eighth rib fracture. IMPRESSION: Mildly displaced right lateral eighth rib fracture. Mild right basilar lung contusion versus atelectasis. Review of Systems Review of Systems: Right-sided ribcage pain with deep inspiration, fall. Constitutional: Constitutional: Denies chills, Denies fatigue, Denies fever(s), Reports frequent falls, Denies lethargy, Denies malaise, Denies night sweats and Denies weakness Eyes: Eyes: Denies change in vision ENT: Denies dysphagia, Denies vertigo, Denies dizziness, Denies odynophagia, Denies disequilibrium and Reports other (Patient uses a Rollator walker as an aid for ambulation) Cardiovascular: Cardiovascular: Denies chest pain, Denies irregular heart rhythm, Denies leg edema, Denies lightheadedness and Denies dyspnea on exertion Respiratory: Respiratory: Denies cough, Reports pain on inspiration and Denies dyspnea on exertion Gastrointestinal: Gastrointestinal: Denies abdominal pain, Denies dyspepsia, Denies heartburn, Denies diarrhea, Denies nausea and Denies vomiting Genitourinary: Genitourinary: Denies dysuria Musculoskeletal: Musculoskeletal: Reports abnormal gait (Uses a Rollator walker) and Reports arthralgias Integumentary/Breasts: Skin/Breast: Denies rash Neurologic: Denies vertigo, Denies dizziness, Denies focal weakness and Denies Sensory deficit
[2022-02-15 20:42] LABS: Influenza A QL RT-PCR Negative (Negative); Influenza B QL RT-PCR Negative (Negative); RSV RNA, RT-PCR Negative (Negative); SARS-CoV-2 RNA PCR Negative
--- NOTE | 2022-02-15 20:50 | PC.NURSE ---
BEDSIDE GLUCOSE 84
[2022-02-15 21:04] LABS: Glucose Point of Care 84 mg/dl (65-105)
--- NOTE | 2022-02-15 22:00 | PC.NURSE ---
SONOGRAM BEING PERFORMED ON PT. WILL TRANSFER TO 247 WHEN COMPLETE.
[2022-02-15 22:34] VITALS: BP 144/77; PULSE 69; RESP 17; TEMP 36.6; O2SAT 97; BMI 27.1
--- NOTE | 2022-02-15 22:54 | ADMGEN ---
This patient, Joshua Armijo, was admitted to Medical Room 247-. Patient/family oriented to hospital policies and general routines including ID bracelet, bed and alarms, visiting hours, pain management, procedures, bathroom and other care routines, personal items, smoking policy, room service/diet, and visiting hours. Information on how to activate the Rapid Response Team has been discussed. Patient/Family are encouraged to report perceived risks to care and to ask questions if they do not understand what they are told or what they should do.
[2022-02-16] VITALS (8 sets, daily range): BP systolic 118–141; BP diastolic 80–86; PULSE 65–73; RESP 18; TEMP 36.4–36.7; O2SAT 96–100
--- NOTE | 2022-02-16 | ECHO_ITS ---
Patient Info Name: Joshua Armijo Age: 66 years : 1955 Gender: Male Ht: 72 in Wt: 200 lbs BSA: 2.16 m2 BP: 118 / 80 mmHg Heart Rhythm: Sinus Rhythm Technical Quality: Fair Exam Date: 02/16/2022 2:55 PM Exam Location: [facility] Pulmonary Patient Status: Outpatient Admit Date: 02/15/2022 Staff Ordering Physician: Dannie Hebert Parts Sales Associate: Delia Seth RDCS Attending Provider: Daniella Calabrese MD Referring Physician: Anup ZAMORA; Exam Type: CA echo doppler color flow Study Info Indications - ACUTE CVA Complete two-dimensional, color flow and Doppler transthoracic echocardiogram is performed. Summary 1. Complete two-dimensional, color flow and Doppler transthoracic echocardiogram is performed. 2. Left ventricular systolic function is normal, estimated at 55-60%. 3. The left ventricular diastolic function is grade I diastolic dysfunction. 4. Right ventricular systolic function is normal. 5. There is mild tricuspid valve regurgitation. 6. Bubble study not done as patient did not have IV access. Left Ventricle Left ventricular chamber dimension is normal. Left ventricular systolic function is normal, estimated at 55-60%. There is no increased left ventricular wall thickness. The left ventricular diastolic function is grade I diastolic dysfunction. Right Ventricle Right ventricular chamber dimension is normal. Right ventricular systolic function is normal. Left Atria Left atrial chamber dimension is normal. Right Atria Right atrial chamber dimension is normal. Atrial Septum Intact interatrial septum visualized by color flow imaging. Aortic Valve The aortic valve is probable trileaflet. There is no aortic valve stenosis. There is no aortic valve regurgitation. Pulmonic Valve The pulmonic valve is not well visualized. Mitral Valve There is no mitral valve stenosis. There is trace mitral valve regurgitation. Tricuspid Valve There is mild tricuspid valve regurgitation. Pericardium/Pleural The pericardium appears epicardial fat pad. There is small pericardial effusion. Aorta The aortic root size at the sinus of Valsalva is not well visualized. Left Ventricular Outflow Tract Name Value Normal LVOT 2D LVOT Diameter 2.1 cm LVOT Doppler LVOT Peak Gradient 4 mmHg LVOT Mean Gradient 2 mmHg LVOT VTI 19 cm LVOT VTI/AV VTI Ratio 1.2 LVOT Stroke Volume 61 ml LVOT CO 13.5 l/min LVOT CI 6.3 l/min/m2 Pulmonic Valve Name Value Normal PV Doppler PV Peak Gradient 2 mmHg Mitral Valve Name
[2022-02-16] MEDS: levETIRAcetam 500 MG TABLET 2000 MG PO ×3 (00:17→20:33)
[2022-02-16] MEDS: LACOSAMIDE (*CRX) 100 MG TABLET PO ×3 (00:17→20:33)
[2022-02-16] MEDS: traZODone HCL 50 MG TABLET 100 MG PO ×2 (01:01→20:33)
[2022-02-16] MEDS: LEVOTHYROXINE SODIUM 75 MCG TABLET PO (06:53)
--- NOTE | 2022-02-16 08:00 | PM.IMPN ---
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 Carotid doppler has no indication of stenosis Neuro consulted Add aspirin, increase atorvastatin to 40mg, continue colestipol, add Plavix Unable to to get MRI due to implantation of stimulator (3) Lung contusion: Code(s): S27.329A - Contusion of lung, unspecified, initial encounter Status: Acute Assessment and Plan: CT high-resolution found mild right lung contusion Pain management on board IS ordered Supportive care (4) Closed fracture of one rib of right side: Code(s): S22.31XA - Fracture of one rib, right side, initial encounter for closed fracture Status: Acute Assessment and Plan: Pain management Incentive spirometer Albuterol nebulizer treatment Monitor for pneumonia development (5) Essential hypertension: Code(s): I10 - Essential (primary) hypertension Status: Acute Assessment and Plan: BP 118/80 Continue home lisinopril 20mg PO daily Trend BP adjust therapy as indicated (6) Epilepsy: Code(s): G40.909 - Epilepsy, unspecified, not intractable, without status epilepticus Status: Acute Assessment and Plan: Chronic Continue home keppra Keppra level ordered Continue to monitor Follow-up in outpatient setting (7) Hypothyroidism, unspecified: Qualifiers: Hypothyroidism type: unspecified Qualified Code(s): E03.9 - Hypothyroidism, unspecified Code(s): E03.9 - Hypothyroidism, unspecified Status: Acute Assessment and Plan: Continue home meds TSH 5.680 Time Spent With Patient Time with patient: Greater than 35 minutes Subjective Date/time seen: 02/16/22799 Interval history: 02/16/22799 Patient is doing ok. He denies any new deficients. He does feel that he is mostly back to normal. He is wanting to have PT/OT so that he can ensure that he is using it properly. Echo was performed however bubble was unable to be done with lack of access. 02/15/22? 19:51 This is a 66-year-old male with past medical history significant for epilepsy status post remote implant of brain neurostimulator, essential hypertension, irritable bowel syndrome.? Patient suffered a mechanical fall at home when he tried to sit on a chair duct got away from him fell to the side striking his ribcage on the right side has not been able to get in to see his primary care physician who instructed him to come to the emergency room due to pain in the ribcage area.? Patient has had ribcage pain denies any fevers, rigors, chills, cough, sputum production.? Incidentally patient was found to have left posterior cerebral artery area suspicious for infarct obstructive was called [facility] were patient usually gets his care and suggested patient to be placed on observation no intervention at this time. Review of Systems Review of Systems: All systems reviewed & are unremarkable except as noted in HPI and below Exam Narrative: General: well-nourished, well-appearing 66-year-old male, sitting up in bed, comfortable, NARD Neuro: awake, alert and oriented x4, speech clear, no focal neuro deficits noted HEENMT: normocephalic, atraumatic, EOMI,
--- NOTE | 2022-02-16 08:00 | P.PNIM_ITS ---
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 * Carotid doppler has no indication of stenosis * Neuro consulted * Add aspirin, increase atorvastatin to 40mg, continue colestipol, add Plavix * Unable to to get MRI due to implantation of stimulator (3) Lung contusion: Code(s): S27.329A - Contusion of lung, unspecified, initial encounter Status: Acute Assessment and Plan: * CT high-resolution found mild right lung contusion * Pain management on board * IS ordered * Supportive care (4) Closed fracture of one rib of right side: Code(s): S22.31XA - Fracture of one rib, right side, initial encounter for closed fracture Status: Acute Assessment and Plan: * Pain management * Incentive spirometer * Albuterol nebulizer treatment * Monitor for pneumonia development (5) Essential hypertension: Code(s): I10 - Essential (primary) hypertension Status: Acute Assessment and Plan: * BP 118/80 * Continue home lisinopril 20mg PO daily * Trend BP * adjust therapy as indicated (6) Epilepsy: Code(s): G40.909 - Epilepsy, unspecified, not intractable, without status epilepticus Status: Acute Assessment and Plan: * Chronic * Continue home keppra * Keppra level ordered * Continue to monitor * Follow-up in outpatient setting (7) Hypothyroidism, unspecified: Qualifiers: Hypothyroidism type: unspecified Qualified Code(s): E03.9 - Hypothyroidism, unspecified Code(s): E03.9 - Hypothyroidism, unspecified Status: Acute Assessment and Plan: * Continue home meds * TSH 5.680 Time Spent With Patient Time with patient: Greater than 35 minutes Subjective Date/time seen: 02/16/22 0800 Interval history: 02/16/22 08 Patient is doing ok. He denies any new deficients. He does feel that he is mostly back to normal. He is wanting to have PT/OT so that he can ensure that he is using it properly. Echo was performed however bubble was unable to be done with lack of access. 02/15/22? 19:51 This is a 66-year-old male with past medical history significant for epilepsy status post remote implant of brain neurostimulator, essential hypertension, irritable bowel syndrome.? Patient suffered a mechanical fall at home when he tried to sit on a chair duct got away from him fell to the side striking his ribcage on the right side has not been able to get in to see his primary care physician who instructed him to come to the emergency room due to pain in the ribcage area.? Patient has had ribcage pain denies any fevers,
[2022-02-16] MEDS: lisinopriL 20 MG TABLET BY MOUTH (08:03)
[2022-02-16] MEDS: ATORVASTATIN 10 MG TABLET PO (08:03)
[2022-02-16] MEDS: COLESTIPOL HCL 1 GM TABLET PO ×2 (08:03→16:56)
[2022-02-16 08:36] LABS: Basophils Absolute Auto 0.1 K/mm3 (0.0-0.1); Basophils Percent Auto 0.9 % (0.2-1.2); Eosinophils Absolute Auto 0.1 K/mm3 (0-0.3); Eosinophils Percent Auto 2.5 % (0-4.4); Hematocrit 49.2 % (42.0-52.0); Hemoglobin 16.5 g/dL (14.0-18.0); Immature Granulocyte Absolute 0.05 K/mm3 (0.00-0.031); Immature Granulocyte Percent A 0.9 % (0-0.5); Lymphocytes Absolute Auto 0.87 K/mm3 (0.9-3.2); Lymphocytes Percent Auto 15.8 % (18.3-44.2); Mean Corpuscular HGB Conc 33.5 g/dl (32-36); Mean Corpuscular Hemoglobin 30.8 pg (26-34); Mean Platelet Volume 9.8 fl (7.4-10.4); Monocytes Absolute Auto 0.7 K/mm3 (0.1-0.6); Monocytes Percent Auto 13.4 % (2.6-8.5); Neutrophils Absolute Auto 3.7 K/mm3 (1.3-6.7); Neutrophils Percent Auto 66.5 % (45.5-73.1); Platelet Count Result 201 k/mm3 (150-375); Red Blood Count 5.35 M/mm3 (4.6-6.20); Red Cell Distribution Width 12.7 % (11.5-14.5); White Blood Count 5.5 K/mm3 (4.5-10.0)
[2022-02-16 08:42] LABS: Alanine Aminotransferase 51 U/L (6-50); Albumin Level 4.1 g/dL (3.5-5.1); Alkaline Phosphatase 64 U/L (38-126); Anion Gap 7 mmol/L (8-16); Aspartate Amino Transferase 37 U/L (17-59); Bilirubin,Total 0.6 mg/dL (0.2-1.3); Blood Urea Nitrogen 13 mg/dL (9-20); Calcium 8.5 mg/dL (8.4-10.2); Carbon Dioxide 29 mmol/L (22-30); Chloride 105 mmol/L (98-107); Cholesterol 107 mg/dL (0-200); Estimated CRCL calculation 78 ml/min; Estimated Glomerular Filt Rate > 60; Glucose 91 mg/dL (65-110); HDL Direct 30 mg/dL; Sodium 141 mmol/L (137-145); Triglycerides 91 mg/dL (<150)
[2022-02-16 08:52] LABS: LDL Cholesterol Direct 57 mg/dL
[2022-02-16 10:29] LABS: Free T4 Free Thyroxine Reflex 1.08 ng/dL (0.78-2.19)
[2022-02-16 11:59] LABS: Total Triiodothyronine (T3) 1.09 NG/ML (0.97-1.69)
--- NOTE | 2022-02-16 12:30 | WPDNEURCNPN ---
Assessment and Plan Assessment and plan (1) Fall: Code(s): W19.XXXA - Unspecified fall, initial encounter Status: Acute (2) Closed head injury: Code(s): S09.90XA - Unspecified injury of head, initial encounter Status: Acute (3) Acute CVA (cerebrovascular accident): Code(s): I63.9 - Cerebral infarction, unspecified Status: Acute Plan 1. History of fall resulting the chest contusion and 8th rib fracture 2. Abnormal CT scan with the possibility acute left STAFFING EXECUTIVE infarct further investigation including the echocardiogram with bubble study have already been ordered patient has been started on aspirin atorvastatin 40 mg daily and Plavix further adjustment will be made accordingly Consult date: 02/16/22 HPI: Joshua Armijo is a 66 year old male admitted to the hospital through the emergency room where he presented in the ambulatory condition for the evaluation of the right upper extremity pain and pain in his right-sided rib cage with history of fall at home about a week ago he did not become unconscious and did not have any headaches post fall but he did bruise his right upper extremity all over and was also experiencing pain in the right-sided ribs . He does take lacosamide 100 mg q.12 hours, in addition he has ongoing history of hypertension, and brain neurostimulator device, he is not a smoker or alcohol drinker, initial evaluation included the CT scan of the brain which revealed acute left posterior cerebral artery infarct in addition she was found to have small right pleural effusion negative x-rays of the humerus and mildly displaced right lateral 8th right rib fracture routine blood studies were negative, serology for the influenza AB RSV and starts COVID were negative and carotid Doppler studies were also negative Review of Systems Review of Systems: All systems reviewed & are unremarkable except as noted in HPI and below [facility] Past Medical History Medical History (Updated 02/16/22 @ 01:05 by Daniella Calabrese MD) BMI 26.0-26.9,adult Epilepsy Essential hypertension Hypothyroidism, unspecified Irritable bowel syndrome with diarrhea Presence of brain neurostimulator device Surgical History Surgical History H/O prostatectomy Hx of tonsillectomy Family History Family History (Updated 02/15/22 @ 23:04 by Alfonso Angulo RN) Sibling Family history of diabetes mellitus in first degree relative Cerebrovascular accident Father Family history of lung cancer Mother Low oxygen saturation Social History Social History Smoking status: Never smoker Second hand tobacco smoke exposure: No Alcohol intake: never Substance use: never Substance use type: does not use Lack of Transportation: No Lack of Food: Never True Current Housing: I Have Housing Concerned About Future Housing: No Difficulty Paying Gas/Electric Bills: No Difficulty Paying for Meds: No Currently Unemployed: No Education: High School Diploma/GED Difficulty w/ Childcare or Family Care: No 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[employer] Gender identity (if verbalized by the patient): Male Spiritual care concerns: No Meds Home Medications and Allergies Home Medications Medication Instructions Recorded Confirmed Type levetiracetam 500 mg tablet 2,000 mg PO Q12H #9 tabs 02/21/19 02/15/22 Rx trazodone 50 mg tablet 100 mg PO .qhs #180 tabs 06/05/21 02/15/22 Rx levothyroxine 75 mcg tablet 75 mcg PO DAILY #90 tabs 09/04/21 02/15/22 Rx lisinopril 20 mg tablet See Rx Instructions .Route 12/04/21 02/15/22 Rx .COMPLEX #90 tabs lacosamide 200 mg tablet 100 mg PO Q12H 12/16/21 02/15/22 History oxybutynin chloride 15 mg 15 mg PO DAILY 12/16/21 02/15/22 History tablet,extended release 24 hr atorvastatin 10 mg tablet 10 mg PO DAILY #90 tabs 01/23/22
--- NOTE | 2022-02-16 16:06 | PCCARD ---
COULD NOT PERFORM BUBBLE STUDY ON ECHOCARDIOGRAM DUE TO NO WORKING IV. 2 NURSES TRIED 2 TIMES EACH TO START A NEW IV. CALLED DL JONES AND LEFT HER A MESSAGE AN IV IS NEEDED.
[2022-02-16] MEDS: CLOPIDOGREL BISULFATE 75 MG TABLET PO (16:55)
[2022-02-16] MEDS: ASPIRIN 81 MG ENTERIC TABLET PO (16:55)
--- NOTE | 2022-02-17 | ECHOL_ITS ---
Patient Info Name: Joshua Armijo Age: 66 years : 1955 Gender: Male Ht: 72 in Wt: 200 lbs BSA: 2.16 m2 HR: 68 bpm BP: 126 / 81 mmHg Heart Rhythm: Sinus Rhythm Technical Quality: Fair Exam Date: 02/17/2022 7:38 AM Exam Location: [facility] Patient Status: Outpatient Admit Date: 02/15/2022 Staff Ordering Physician: Dannie Hebert Blueprint Trimmer: Gaby Aldrich RDCS Attending Provider: Daniella Calabrese MD Referring Physician: Anup ZAMORA; Exam Type: CA echo limited Study Info Indications - bubble study Limited two-dimensional transthoracic echocardiogram is performed. Limited two-dimensional transthoracic echocardiogram is performed with agitated saline. Contrast/Agitated Saline Contrast/Ag. Saline: Agitated Saline Amount: 20.00 ml Existing IV Access: Yes IV Access Condition: patent with no signs of infiltration Summary 1. Limited echocardiogram performed in the apical four-chamber projection with saline contrast injection. 2. No evidence of intracardiac shunt was identified. Left Ventricle Left ventricular chamber dimension is normal. Left ventricular systolic function is normal, estimated at Empty. Right Ventricle Right ventricular chamber dimension is normal. Left Atria Left atrial chamber dimension is normal. Right Atria Right atrial chamber dimension is normal. Atrial Septum Intact interatrial septum visualized by agitated saline imaging. Mitral Valve The mitral valve has normal leaflets. Tricuspid Valve The tricuspid valve leaflets are normal. Report Signatures
[2022-02-17 03:53] VITALS: BP 126/81; PULSE 65; RESP 20; TEMP 36.4; O2SAT 97
[2022-02-17] MEDS: LEVOTHYROXINE SODIUM 75 MCG TABLET PO (06:06)
[2022-02-17] MEDS: levETIRAcetam 500 MG TABLET 2000 MG PO (08:37)
[2022-02-17] MEDS: lisinopriL 20 MG TABLET BY MOUTH (08:37)
[2022-02-17] MEDS: CLOPIDOGREL BISULFATE 75 MG TABLET PO (08:37)
[2022-02-17] MEDS: ATORVASTATIN 40 MG TABLET PO (08:37)
[2022-02-17] MEDS: LACOSAMIDE (*CRX) 100 MG TABLET PO (08:37)
[2022-02-17] MEDS: ASPIRIN 81 MG ENTERIC TABLET PO (08:37)
[2022-02-17] MEDS: COLESTIPOL HCL 1 GM TABLET PO (08:37)
--- NOTE | 2022-02-17 10:28 | PCSTNOTE ---
Please refer to the Bedside Swallow Evaluation in the EMR. Please note, silent aspiration cannot be ruled out at bedside.
[2022-02-17] MEDS: ARTIFICIAL TEARS OPHTH SOLN 15 ML BOTTLE 1 DROP EACH EYE (12:27)
[2022-02-17 14:00] VITALS: BP 122/75; PULSE 79; RESP 14; TEMP 36.5; O2SAT 97
--- NOTE | 2022-02-17 15:00 | PM.DS ---
DS: Admitting Diagnosis Discharge Date 02/17/22 1500 Admitting Diagnosis Acute CVA DS: Discharge Diagnosis Discharge Diagnosis (1) Fall: Code(s): W19.XXXA - Unspecified fall, initial encounter Status: Acute Assessment and Plan: Reported trying to sit in chair which got away resulting in a fall Xrays and CT show 8th rib right-sided fracture and chest contusion Pain management For precautions Uses Rollator walker as an aid for ambulation at home PT OT consult (2) Acute CVA (cerebrovascular accident): Code(s): I63.9 - Cerebral infarction, unspecified Status: Acute Assessment and Plan: Head CT shows acute infarct of the LOCK STITCH CHANNELER area Echo with bubble will need to be repeated as the patient did not have IV access. Carotid doppler has no indication of stenosis Neuro consulted Add aspirin, increase atorvastatin to 40mg, continue colestipol, add Plavix Unable to to get MRI due to implantation of stimulator (3) Lung contusion: Code(s): S27.329A - Contusion of lung, unspecified, initial encounter Status: Acute Assessment and Plan: CT high-resolution found mild right lung contusion Pain management on board IS ordered Supportive care (4) Closed fracture of one rib of right side: Code(s): S22.31XA - Fracture of one rib, right side, initial encounter for closed fracture Status: Acute Assessment and Plan: Pain management Incentive spirometer Albuterol nebulizer treatment Monitor for pneumonia development (5) Essential hypertension: Code(s): I10 - Essential (primary) hypertension Status: Acute Assessment and Plan: BP 118/80 Continue home lisinopril 20mg PO daily Trend BP adjust therapy as indicated (6) Epilepsy: Code(s): G40.909 - Epilepsy, unspecified, not intractable, without status epilepticus Status: Acute Assessment and Plan: Chronic Continue home keppra Keppra level ordered Continue to monitor Follow-up in outpatient setting (7) Hypothyroidism, unspecified: Qualifiers: Hypothyroidism type: unspecified Qualified Code(s): E03.9 - Hypothyroidism, unspecified Code(s): E03.9 - Hypothyroidism, unspecified Status: Acute Assessment and Plan: Continue home meds TSH 5.680 DS: Summary Hospital Course Hospital Course: Patient is a 66-year-old male with a past medical history of hyperlipidemia, hypertension, epilepsy who presented to the ED with complaints of weakness and a fall. CT of the head shows acute infarct of the LOCK STITCH CHANNELER area. Echo was unremarkable. Carotid Dopplers were performed and showed no indication of stenosis. Neurology was consulted. low-dose aspirin, and Plavix were added. Atorvastatin was increased to 40 mg. X-rays also indicated a chest contusion along with fracture of the 8th rib. Pain medicines were available. TSH was checked and appears to be ok at this time. PT and OT were also consulted and evaluated the patient. Speech therapy was also consulted as the patient does have some moments where he does cough when eating and drinking. Patient did not show any abnormal rhythms. Patient currently is stable and feels back to his normal self. He is stable per labs and vital signs and is able to be discharged at this time. Patient will need to follow up with Neurology in 3 months. Bubble study was not performed on date of echo, however, bubble study has been done and is awaiting read. Will follow from here and will follow up with patient about any pertinent finds. Dr. Napier also is ok with this plan. Bubble study did not indicate any intracardiac shunt Status at Discharge Functional status at discharge: uses cane/walker Overall status at discharge: patient is progressing back to baseline Time Spent with Patient Time att
--- NOTE | 2022-02-17 15:00 | P.DS_ITS ---
DS: Admitting Diagnosis Discharge Date 02/17/22 1500 Admitting Diagnosis Acute CVA DS: Discharge Diagnosis Discharge Diagnosis (1) Fall: Code(s): W19.XXXA - Unspecified fall, initial encounter Status: Acute Assessment and Plan: * Reported trying to sit in chair which got away resulting in a fall * Xrays and CT show 8th rib right-sided fracture and chest contusion * Pain management * For precautions * Uses Rollator walker as an aid for ambulation at home * PT OT consult (2) Acute CVA (cerebrovascular accident): Code(s): I63.9 - Cerebral infarction, unspecified Status: Acute Assessment and Plan: * Head CT shows 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 * Carotid doppler has no indication of stenosis * Neuro consulted * Add aspirin, increase atorvastatin to 40mg, continue colestipol, add Plavix * Unable to to get MRI due to implantation of stimulator (3) Lung contusion: Code(s): S27.329A - Contusion of lung, unspecified, initial encounter Status: Acute Assessment and Plan: * CT high-resolution found mild right lung contusion * Pain management on board * IS ordered * Supportive care (4) Closed fracture of one rib of right side: Code(s): S22.31XA - Fracture of one rib, right side, initial encounter for closed fracture Status: Acute Assessment and Plan: * Pain management * Incentive spirometer * Albuterol nebulizer treatment * Monitor for pneumonia development (5) Essential hypertension: Code(s): I10 - Essential (primary) hypertension Status: Acute Assessment and Plan: * BP 118/80 * Continue home lisinopril 20mg PO daily * Trend BP * adjust therapy as indicated (6) Epilepsy: Code(s): G40.909 - Epilepsy, unspecified, not intractable, without status epilepticus Status: Acute Assessment and Plan: * Chronic * Continue home keppra * Keppra level ordered * Continue to monitor * Follow-up in outpatient setting (7) Hypothyroidism, unspecified: Qualifiers: Hypothyroidism type: unspecified Qualified Code(s): E03.9 - Hypothyroidism, unspecified Code(s): E03.9 - Hypothyroidism, unspecified Status: Acute Assessment and Plan: * Continue home meds * TSH 5.680 DS: Summary Hospital Course Hospital Course: Patient is a 66-year-old male with a past medical history of hyperlipidemia, hypertension, epilepsy who presented to the ED with complaints of weakness and a fall. CT of the head shows acute infarct of the REGIONAL OPERATIONS MANAGER area. Echo was unremarkable. Carotid Dopplers were performed and showed no indication of stenosis. Neurology was consulted. low-dose aspirin, and Plavix were added. Atorvastatin was increased to 40 mg. X-rays also indicated a chest contusion along with fracture of the 8th rib. Pain medicines were available. TSH was checked and appears to be ok at this time. PT and OT were also consulted and evaluated the patient. Speech therapy was also consulted as the patient does have some moments where he does cough when eating and drinking. Patient did not show any abnormal rhythms. Patient currently is stable and feel
== END 2022-02-17 15:50 | disposition home health service (06) ==
LOC: ANHED 20:04 → ANH2MED 21:57
PROVIDERS: Nurse Practitioner; Admitting Provider Internal Medicine; Emergency Provider General Practice; PCP Family Medicine; Visit Provider Chiropractor
DX: I63.9 Cerebral infarction, unspecified (principal); S27.321A Contusion of lung, unilateral, initial encounter; S22.31XA Fracture of one rib, right side, initial encounter for closed fracture; S09.90XA Unspecified injury of head, initial encounter; W19.XXXA Unspecified fall, initial encounter; I10 Essential (primary) hypertension; G40.909 Epilepsy, unspecified, not intractable, without status epilepticus; E03.9 Hypothyroidism, unspecified; I07.1 Rheumatic tricuspid insufficiency; M79.601 Pain in right arm; J90 Pleural effusion, not elsewhere classified; M47.814 Spondylosis without myelopathy or radiculopathy, thoracic region; R26.9 Unspecified abnormalities of gait and mobility; K58.0 Irritable bowel syndrome with diarrhea; Z96.82 Presence of neurostimulator; R94.31 Abnormal electrocardiogram [ECG] [EKG]; Z79.899 Other long term (current) drug therapy; Z82.49 Family history of ischemic heart disease and other diseases of the circulatory system
CPT/HCPCS: 36415; 70450; 71046; 71100; 71250; 73060; 80053; 80061; 82948; 84439; 84443; 84480; 85025; 85610; 85730; 87637; 92610; 93005; 93306; 93308; 93880; 97110; 97161; 97165; 97535; 99285; A9270; G0378

== ENCOUNTER 2022-06-09 15:04 | Outpatient (CLI) | payer MEDICARE, SELFPAY ==
--- NOTE | ~2022-06-09 | XR_ITS ---
Cervical Spine: AP, lateral, open-mouth views Clinical History: Pain Findings: There is reversal of the normal cervical lordosis. No fracture or dislocation seen. There i s moderate to advanced degenerative disc narrowing throughout cervical spine. There is mild to modera te facet arthropathy at the mid cervical spine. Pre-vertebral soft tissues are unremarkable. Impression: Moderate degenerative spondylosis, as above. Reversal of the normal cervical lordosis. Reviewed, dictated and finalized at location . Impression: Moderate degenerative spondylosis, as above. Reversal of the normal cervical lordosis.
== END 2022-06-09 15:05 | disposition home or self-care (01) ==
LOC: ANHIMG 15:09
PROVIDERS: PCP Family Medicine; Visit Provider Plastic Surgery
DX: M47.22 Other spondylosis with radiculopathy, cervical region (principal)
CPT/HCPCS: 72050

== ENCOUNTER 2023-05-06 14:46 | Emergency (ER) | payer MEDICARE, SELFPAY ==
[2023-05-06] VITALS (13 sets, daily range): BP systolic 111–127; BP diastolic 67–80; PULSE 72–115; RESP 12–20; TEMP 36.4–36.6; O2SAT 96–99
--- NOTE | ~2023-05-06 | CT_ITS ---
EXAMINATION: CT abdomen pelvis wo con DATE: 05/06/2023 15:50 INDICATION: hematuria TECHNIQUE: Computed tomography (CT) of the abdomen and pelvis was performed without intravenous contr ast. Automated exposure control and iterative reconstruction technique were employed. The dose-length product was 596.24 mGy-cm. COMPARISON: 09/03/2012. FINDINGS: Lower thorax: Mild dependent atelectasis and basilar scarring. Coronary artery calcifications. Liver: Normal. Biliary/Gallbladder: Gallbladder is normal. No bile duct dilation. Pancreas: No mass or duct dilation. Spleen: Normal. Adrenals:No mass. Kidneys: No suspicious mass or obstructing stone. Mild bilateral ureterectasis. GI tract: No small or large bowel dilation. Normal appendix. Mesentery/Peritoneum: No ascites or free air. Interval enlargement of the calcified mass in the small bowel mesentery, with surrounding desmoplastic reaction. Submucosal fat deposition in the proximal c olon. Retroperitoneum: No mass. Pelvis: Severe bladder wall thickening in an incompletely distended urinary bladder and moderate surr ounding inflammatory change. Soft Tissues: Soft tissues and body wall unremarkable. Bones: No acute osseous finding. IMPRESSION: Moderate cystitis, which appears to be causing a degree of mild hydronephrosis. Enlarging calcified small bowel mesentery mass, differential includes carcinoid tumor or sclerosing m esenteritis. Metastatic prostate cancer is considered less likely. Reviewed, dictated and finalized at location K. IMPRESSION: Moderate cystitis, which appears to be causing a degree of mild hydronephrosis. Enlarging calcified small bowel mesentery mass, differential includes carcinoid tumor or sclerosing mesenteritis. Metastatic prostate cancer is considered les s likely.
--- NOTE | 2023-05-06 15:11 | ED.MALEGU ---
HPI - Male Genitourinary General Chief complaint: Urogenital-Male Stated complaint: Blood in urine Time Seen by Provider: 05/06/23 15:09 History of Present Illness HPI Narrative: Patient is a 67 year old male with history of CVA here with hematuria and dysuria. He notes symptoms have been present for 3 days. He notes some pain with urination and some pain in his abdomen extending to his left flank. He denies any fever or chills. Denies any trauma. No history of kidney stone. He does take a baby ASA daily. Related Data Home Medications Medication Instructions Recorded Confirmed lacosamide 200 mg tablet 100 mg PO Q12H 12/16/21 08/30/22 ascorbic acid (vitamin C) 100 mg 100 mg PO DAILY 08/30/22 08/30/22 tablet [id number] 250 1 tablet PO BID 08/30/22 08/30/22 mg-40 mg-5 mg-125 unit tablet (Calcium Citrate Plus (pyridoxine)) cholecalciferol (vitamin D3) 50 50 mcg PO DAILY 08/30/22 08/30/22 mcg (2,000 unit) capsule (Vitamin D3) multivitamin with minerals-folic tablet PO 08/30/22 acid 0.4 mg tablet Allergies Allergy/AdvReac Type Severity Reaction Status Date / Time No Known Allergies Allergy Verified 05/06/23 15:24 Review of Systems Review of Systems: All systems reviewed & are unremarkable except as noted in HPI and below PMFSH Past Medical History Medical History BMI 26.0-26.9,adult Epilepsy Essential hypertension Hypothyroidism, unspecified Irritable bowel syndrome with diarrhea Presence of brain neurostimulator device Surgical History Surgical History H/O prostatectomy Hx of tonsillectomy Family History Family History Sibling Family history of diabetes mellitus in first degree relative Cerebrovascular accident Father Family history of lung cancer Mother Low oxygen saturation Social History Social History Smoking status: Never smoker Second hand tobacco smoke exposure: No Alcohol intake: never Substance use: never Substance use type: does not use Lack of Transportation: No Lack of Food: Never True Current Housing: I Have Housing Concerned About Future Housing: No Difficulty Paying Gas/Electric Bills: No Difficulty Paying for Meds: No Currently Unemployed: No Education: High School Diploma/GED Difficulty w/ Childcare or Family Care: No Living arrangements: with family Occupation/Education: retired 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 HEAD: Normocephalic, atraumatic. EYES: PERRLA and EOMI. ENT: Nares clear. Mucous membranes moist. NECK: Supple. CHEST: Clear to auscultation. No respiratory distress. HEART: Regular rate and rhythm. Normal peripheral pulses. ABDOMEN: Soft, diffuse abdominal tenderness, worse in the suprapubic region, left CVA tenderness, no right CVA tenderness. EXTREMITIES: Normal range of motion. No edema. SKIN: Warm, dry, no rash. NEURO: No focal deficits. Alert and oriented x3. PSYCH: Normal mood and affect. Course Course Emergency Course: Chart review performed. Patient here with blood in urine and dysuria since 05/04/23. Chart shows history of CVA, home med list includes aspirin. Patient seen evaluated, nontoxic appearing. He has some abdominal tenderness, chelsey hematuria and left flank tenderness. Differentials include UTI, stone, outlet obstruction from either mass or clot. Basic lab work, UA, bladder scan, CT abdomen pelvis ordered. Patient agreeable to workup and plan. Lab work and imaging reviewed, and mild leukocytosis of 11.4, renal functi
[2023-05-06 15:37] LABS: Basophils Absolute Auto 0.1 K/mm3 (0.0-0.1); Basophils Percent Auto 0.4 % (0.2-1.2); Eosinophils Absolute Auto 0.2 K/mm3 (0-0.3); Eosinophils Percent Auto 1.3 % (0-4.4); Hematocrit 48.1 % (42.0-52.0); Hemoglobin 15.8 g/dL (14.0-18.0); Immature Granulocyte Absolute 0.07 K/mm3 (0.00-0.031); Immature Granulocyte Percent A 0.6 % (0-0.5); Lymphocytes Absolute Auto 1.04 K/mm3 (0.9-3.2); Lymphocytes Percent Auto 9.1 % (18.3-44.2); Mean Corpuscular HGB Conc 32.8 g/dl (32-36); Mean Corpuscular Volume 91.3 fl (80-100); Monocytes Absolute Auto 1.2 K/mm3 (0.1-0.6); Monocytes Percent Auto 10.4 % (2.6-8.5); Neutrophils Absolute Auto 8.9 K/mm3 (1.3-6.7); Neutrophils Percent Auto 78.2 % (45.5-73.1); Platelet Count Result 203 k/mm3 (150-375); Red Blood Count 5.27 M/mm3 (4.6-6.20); White Blood Count 11.4 K/mm3 (4.5-10.0)
[2023-05-06 15:47] LABS: Bacteria Urine None Seen /hpf; Need Manual Microscopic Reviewed; RBC Urine >100 /hpf (0-2); Squamous Epithelial Cell Urine None Seen /hpf (Few); WBC Urine >100 /hpf (0-3)
[2023-05-06 15:47] LABS: Alanine Aminotransferase 38 U/L (6-50); Albumin Level 4.1 g/dL (3.5-5.1); Alkaline Phosphatase 58 U/L (38-126); Anion Gap 7 mmol/L (8-16); Aspartate Amino Transferase 47 U/L (17-59); Bilirubin,Total 0.7 mg/dL (0.2-1.3); Blood Urea Nitrogen 12 mg/dL (9-20); Carbon Dioxide 28 mmol/L (22-30); Chloride 103 mmol/L (98-107); Estimated CRCL calculation 70 ml/min; Estimated Glomerular Filt Rate > 60; Glucose 123 mg/dL (65-110); Sodium 138 mmol/L (137-145)
[2023-05-06 15:50] LABS: Appearance Urine Cloudy (Clear); Bilirubin Urine 1+ (Negative); Blood Urine 3+ (Negative); Color Urine Red (Yellow); Glucose Urine UA Negative (Negative); Ketones Urine Negative (Negative); Leukocyte Esterase Ur 3+ LEU/UL (Negative); Nitrate Urine Negative (Negative); Protein Urine 3+ mg/dL (Negative); Specific Grav Ur 1.006 (1.001-1.035); Urobilinogen Urine 0.2 mg/dL (<2.0)
[2023-05-06 15:51] LABS: Add Urine Microscopic? YES
[2023-05-06] MEDS: SODIUM CHLORIDE 0.9% IV 1,000 ML 999 ML IV CONT (16:10)
== END 2023-05-06 17:31 | disposition home or self-care (01) ==
PROVIDERS: Emergency Medicine; Emergency Provider Student in an Organized Health Care Education/Training Program; PCP Family Medicine
DX: N30.01 Acute cystitis with hematuria (principal); R19.00 Intra-abdominal and pelvic swelling, mass and lump, unspecified site; G40.909 Epilepsy, unspecified, not intractable, without status epilepticus; I10 Essential (primary) hypertension; E03.9 Hypothyroidism, unspecified; K58.0 Irritable bowel syndrome with diarrhea; Z96.82 Presence of neurostimulator; Z90.79 Acquired absence of other genital organ(s); Z79.82 Long term (current) use of aspirin
CPT/HCPCS: 36415; 74176; 80053; 85025; 87086; 96365; 99284; J0696; J7030

== ENCOUNTER 2023-05-14 12:12 | Outpatient (CLI) | payer MEDICARE, SELFPAY ==
[2023-05-14 12:31] LABS: Hematocrit 50.6 % (42.0-52.0); Hemoglobin 16.2 g/dL (14.0-18.0); Mean Corpuscular Hemoglobin 29.6 pg (26-34); Mean Corpuscular Volume 92.5 fl (80-100); Mean Platelet Volume 9.7 fl (7.4-10.4); Platelet Count Result 223 k/mm3 (150-375); Red Blood Count 5.47 M/mm3 (4.6-6.20); Red Cell Distribution Width 12.8 % (11.5-14.5); White Blood Count 6.5 K/mm3 (4.5-10.0)
== END 2023-05-14 12:13 | disposition home or self-care (01) ==
LOC: ANHLAB 12:15
PROVIDERS: PCP Family Medicine; Visit Provider Nurse Practitioner Family
DX: E78.2 Mixed hyperlipidemia (principal); C61 Malignant neoplasm of prostate; K63.89 Other specified diseases of intestine
CPT/HCPCS: 36415; 85027

== ENCOUNTER 2023-06-04 01:54 | Day surgery (SDC) | payer MEDICARE, SELFPAY ==
[2023-05-17 08:51] VITALS: BMI 25.7
[2023-06-04 13:40] VITALS: BP 140/85; PULSE 70; RESP 18; TEMP 36.4; O2SAT 97
[2023-06-04] MEDS: LACTATED RINGERS 1,000 ML 150 ML IV CONT (13:54)
--- NOTE | 2023-06-04 13:55 | WPDANESEPPF ---
Anes - Initial Pre Proc Eval Procedure: Operation Date: 06/04/23 14:30 Proposed Procedures p Colonoscopy - Anton Stevens MD Date/Time: 06/04/23 13:55 Surgeon: Anton Stevens MD Pre Op Diagnosis: Other disease of intestine, pers. hx. prostate CA Patient Data Age: 67 Gender: M Height: 1.83 m Weight: 86.4 kg Last Vital Signs Temp 97.6 F 06/04/23 13:40 Pulse 70 06/04/23 13:40 Resp 18 06/04/23 13:40 BP 140/85 06/04/23 13:40 Pulse Ox 97 06/04/23 13:40 O2 Del Method Room Air 06/04/23 13:40 Allergies Allergy/AdvReac Type Severity Reaction Status Date / Time No Known Allergies Allergy Verified 06/04/23 13:36 Home Medications Medication Instructions Recorded Confirmed Type levetiracetam 500 mg tablet 2,000 mg PO Q12H #9 tabs 02/21/19 05/17/23 Rx lacosamide 200 mg tablet 100 mg PO Q12H 12/16/21 05/17/23 History eluxadoline 75 mg tablet (Viberzi) 75 mg PO BID 3 months #180 tabs 06/06/22 05/17/23 Rx levothyroxine 75 mcg tablet 75 mcg PO DAILY #90 tabs 08/16/22 05/17/23 Rx ascorbic acid (vitamin C) 100 mg 100 mg PO DAILY 08/30/22 05/17/23 History tablet qvxknar-gtw-ebh [id number] 250 1 tablet PO BID 08/30/22 05/17/23 History mg-40 mg-5 mg-125 unit tablet (Calcium Citrate Plus (pyridoxine)) cholecalciferol (vitamin D3) 50 50 mcg PO DAILY 08/30/22 05/17/23 History mcg (2,000 unit) capsule (Vitamin D3) multivitamin with minerals-folic 0.4 tablet PO DAILY 08/30/22 05/17/23 History acid 0.4 mg tablet aspirin 81 mg tablet,delayed 81 mg PO QAM #90 tabs 10/15/22 05/17/23 Rx release trazodone 50 mg tablet 100 mg PO .qhs #180 tabs 11/27/22 05/17/23 Rx cephalexin 500 mg capsule 500 mg PO Q6H 10 days #40 caps 05/06/23 05/17/23 Rx carbidopa 25 mg-levodopa 100 mg 1 tablet PO TID 05/11/23 05/17/23 History tablet oxybutynin chloride 15 mg See Rx Instructions .Route 05/27/23 06/04/23 Rx tablet,extended release 24 hr .COMPLEX #90 tabs loperamide 2 mg capsule 2 mg PO Q6H PRN loose stool #240 05/28/23 06/04/23 Rx caps atorvastatin 40 mg tablet 40 mg PO DAILY #90 tabs 06/03/23 06/04/23 Rx lisinopril 20 mg tablet See Rx Instructions .Route 06/03/23 06/04/23 Rx .COMPLEX #90 tabs Patient hx anesthesia problems: none Family hx anesthesia problems: none Results Review: All pre-operative results and documents have been reviewed as part of the pre-operative evaluation. [facility] Past Medical History Medical History BMI 26.0-26.9,adult Epilepsy Essential hypertension Hypothyroidism, unspecified Irritable bowel syndrome with diarrhea Presence of brain neurostimulator device Surgical History Surgical History H/O prostatectomy Hx of tonsillectomy Family History Family History Sibling Family history of diabetes mellitus in first degree relative Cerebrovascular accident Father Family history of lung cancer Mother Low oxygen saturation Social History Social History Smoking status: Never smoker Second hand tobacco smoke exposure: No Alcohol intake: never Substance use: never Substance use type: does not use Do You Feel Safe in your Home?: Yes Lack of Transportation: No Lack of Food: Never True Current Housing: I Have Housing Concerned About Future Housing: No Difficulty Paying Gas/Electric Bills: No Difficulty Paying for Meds: No Currently Unemployed: No Education: High School Diploma/GED Difficulty w/ Childcare or Family Care: No Living arrangements: with family Occupation/Education: retired 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
--- NOTE | 2023-06-04 14:31 | PM.HPGS ---
History of Present Illness History of Present Illness Consent: Risks, benefits, and alternatives have been discussed and questions answered. Patient agrees to proceed with procedure. Chief complaint: Other disease of intestine, pers. hx. prostate CA Narrative: Joshua Armijo is a 67 year old male here for screening colonoscopy, also incidental finding of calcified lesion near small bowel Review of Systems Review of Systems: All systems reviewed & are unremarkable except as noted in HPI and below PMFSH Past Medical History Medical History (Updated 06/04/23 @ 14:32 by Anton Stevens MD) BMI 26.0-26.9,adult Colon cancer screening Epilepsy Essential hypertension Hypothyroidism, unspecified Irritable bowel syndrome with diarrhea Presence of brain neurostimulator device Surgical History Surgical History H/O prostatectomy Hx of tonsillectomy Family History Family History Sibling Family history of diabetes mellitus in first degree relative Cerebrovascular accident Father Family history of lung cancer Mother Low oxygen saturation Social History Social History Smoking status: Never smoker Second hand tobacco smoke exposure: No Alcohol intake: never Substance use: never Substance use type: does not use Do You Feel Safe in your Home?: Yes Lack of Transportation: No Lack of Food: Never True Current Housing: I Have Housing Concerned About Future Housing: No Difficulty Paying Gas/Electric Bills: No Difficulty Paying for Meds: No Currently Unemployed: No Education: High School Diploma/GED Difficulty w/ Childcare or Family Care: No Living arrangements: with family Occupation/Education: retired 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[employer] Gender identity (if verbalized by the patient): Male Spiritual care concerns: No Meds Home Medications and Allergies Home Medications Medication Instructions Recorded Confirmed Type levetiracetam 500 mg tablet 2,000 mg PO Q12H #9 tabs 02/21/19 05/17/23 Rx lacosamide 200 mg tablet 100 mg PO Q12H 12/16/21 05/17/23 History eluxadoline 75 mg tablet (Viberzi) 75 mg PO BID 3 months #180 tabs 04/18/23 03/28/24 Rx levothyroxine 75 mcg tablet 75 mcg PO DAILY #90 tabs 08/16/22 05/17/23 Rx ascorbic acid (vitamin C) 100 mg 100 mg PO DAILY 08/30/22 05/17/23 History tablet fyoejrh-eeb-gvo Q3-Y5-fanmcywh 250 1 tablet PO BID 08/30/22 05/17/23 History mg-40 mg-5 mg-125 unit tablet (Calcium Citrate Plus (pyridoxine)) cholecalciferol (vitamin D3) 50 50 mcg PO DAILY 08/30/22 05/17/23 History mcg (2,000 unit) capsule (Vitamin D3) multivitamin with minerals-folic 0.4 tablet PO DAILY 08/30/22 05/17/23 History acid 0.4 mg tablet aspirin 81 mg tablet,delayed 81 mg PO QAM #90 tabs 10/15/22 05/17/23 Rx release trazodone 50 mg tablet 100 mg PO .qhs #180 tabs 11/27/22 05/17/23 Rx cephalexin 500 mg capsule 500 mg PO Q6H 10 days #40 caps 05/06/23 05/17/23 Rx carbidopa 25 mg-levodopa 100 mg 1 tablet PO TID 05/11/23 05/17/23 History tablet oxybutynin chloride 15 mg See Rx Instructions .Route 05/27/23 06/04/23 Rx tablet,extended release 24 hr .COMPLEX #90 tabs loperamide 2 mg capsule 2 mg PO Q6H PRN loose stool #240 05/28/23 06/04/23 Rx caps atorvastatin 40 mg tablet 40 mg PO DAILY #90 tabs 06/03/23 06/04/23 Rx lisinopril 20 mg tablet See Rx Instructions .Route 06/03/23 06/04/23 Rx .COMPLEX #90 tabs Allergies Allergy/AdvReac Type Severity Reaction Status Date / Time No Known Allergies Allergy Verified 06/04/23 13:36 Vital Signs Vital Signs - 24 hr 06/04/23 13:40 Temperature 97.6 F Pulse Rate 70 Respiratory Rate 18 Blood Pressure 140/85 Pulse Oximetry 97 Oxygen Delivery Room Air Exa
[2023-06-04 14:49] VITALS: BP 96/55; PULSE 66; RESP 19; O2SAT 98
[2023-06-04 14:59] VITALS: BP 98/55; PULSE 63; RESP 17; O2SAT 98
[2023-06-04 15:09] VITALS: BP 105/56; PULSE 61; RESP 19; O2SAT 99
--- NOTE | 2023-06-05 06:40 | SUR.PREOP ---
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 Recommendations to leave nerve stimulator on during the procedure. Dr Hwang agrees- no new orders at this time.
== END 2023-06-04 15:24 | disposition home or self-care (01) ==
PROVIDERS: PCP Family Medicine; Referring Provider Nurse Practitioner Family; Visit Provider Internal Medicine Gastroenterology
PROC: 0DJD8ZZ Inspection of Lower Intestinal Tract, Via Natural or Artificial Opening Endoscopic (ICD-10-PCS; CPT 45378; principal; 2023-06-04 14:30)
DX: Z12.11 Encounter for screening for malignant neoplasm of colon (principal); D12.2 Benign neoplasm of ascending colon; D12.3 Benign neoplasm of transverse colon; K64.8 Other hemorrhoids; K57.30 Diverticulosis of large intestine without perforation or abscess without bleeding; I10 Essential (primary) hypertension; G40.909 Epilepsy, unspecified, not intractable, without status epilepticus; E03.9 Hypothyroidism, unspecified; K58.0 Irritable bowel syndrome with diarrhea; Z79.82 Long term (current) use of aspirin; Z98.890 Other specified postprocedural states; Z96.82 Presence of neurostimulator; Z85.46 Personal history of malignant neoplasm of prostate; Z80.1 Family history of malignant neoplasm of trachea, bronchus and lung; Z82.49 Family history of ischemic heart disease and other diseases of the circulatory system
CPT/HCPCS: 45385; 88305; J2704; J7120

== ENCOUNTER 2023-06-28 08:17 | Outpatient (CLI) | payer MEDICARE, SELFPAY ==
--- NOTE | ~2023-06-28 | XR_ITS ---
EXAMINATION: XR small bowel follow through DATE: 06/28/2023 11:20 INDICATION: Abdominal mass. TECHNIQUE: Oral contrast was administered, and a time course of radiographs of the abdomen was obtain ed. Fluoroscopy of the small bowel was performed. Fluoroscopy exposure time was 0.4 minutes. The tota l number of images was 15. COMPARISON: CT abdomen and pelvis 05/06/2023 FINDINGS: There are calcifications in the right abdomen. There are no dilated loops of bowel. There is no stric ture. The terminal ileum is normal. Transit time from the stomach to proximal colon was approximately 2 hours. IMPRESSION: 1. Calcifications in the right abdomen correlating with a chronic partially calcified mass of the sma ll bowel mesentery by CT. The differential diagnosis includes sclerosing mesenteritis and carcinoid. Reviewed, dictated and finalized at location [facility]. IMPRESSION: 1. Calcifications in the right abdomen correlating with a chronic partially bridgett cified mass of the small bowel mesentery by CT. The differential diagnosis incl udes sclerosing mesenteritis and carcinoid.
== END 2023-06-28 08:18 | disposition home or self-care (01) ==
PROVIDERS: PCP Family Medicine; Visit Provider Internal Medicine Gastroenterology
DX: R93.3 Abnormal findings on diagnostic imaging of other parts of digestive tract (principal)
CPT/HCPCS: 74250

== ENCOUNTER 2023-07-19 11:12 | Outpatient (CLI) | payer MEDICARE, SELFPAY ==
[2023-07-19 12:25] LABS: Prostate Specific Antigen < 0.1 ng/mL (< OR = 4.0)
== END 2023-07-19 11:13 | disposition home or self-care (01) ==
LOC: ANHLAB 11:14
PROVIDERS: PCP Family Medicine; Visit Provider Nurse Practitioner Family
DX: C61 Malignant neoplasm of prostate (principal); E78.2 Mixed hyperlipidemia; Z85.46 Personal history of malignant neoplasm of prostate
CPT/HCPCS: 36415; 84153; 84443

== ENCOUNTER 2024-01-20 12:45 | Emergency (ER) | payer MEDICARE, SELFPAY ==
--- NOTE | ~2024-01-20 | CT_ITS ---
EXAMINATION: CT abdomen pelvis wo con DATE: 01/20/2024 15:59 INDICATION: UTI/Urinary retention TECHNIQUE: Computed tomography (CT) of the abdomen and pelvis was performed without intravenous contr ast. Automated exposure control and iterative reconstruction technique were employed. The dose-length product was 961.39 mGy-cm. COMPARISON: 05/06/2023. FINDINGS: Lower thorax: Coronary artery calcifications. Liver: Normal. Biliary/Gallbladder: Gallbladder is normal. No bile duct dilation. Pancreas: No mass or duct dilation. Spleen: Normal. Adrenals:No mass. Kidneys: No suspicious mass, obstructing stone, or hydronephrosis. GI tract: Mildly dilated small bowel in the right upper quadrant, adjacent to a mesenteric mass. No large bowel dilation. Normal appendix. Mesentery/Peritoneum: No ascites or free air. Stable irregular calcified mesenteric mass which distor ts the normal anatomy of the small bowel mesentery. Retroperitoneum: No mass. Pelvis: Moderate bladder wall thickening with surrounding inflammatory change. Status post prostatect jeremy. Soft Tissues: Soft tissues and body wall unremarkable. Bones: No acute osseous finding. IMPRESSION: Stable calcified mass in the small bowel mesentery. Mild adjacent small bowel dilation, may reflect ileus or early/partial obstruction. Moderate cystitis. Reviewed, dictated and finalized at location [facility]. 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 Mild adjacent small bowel dilation, may reflect ileus or early/partial obstruct ion. Moderate cystitis.
[2024-01-20 12:54] VITALS: BP 140/67; PULSE 83; RESP 18; TEMP 36.3; O2SAT 99
[2024-01-20 13:07] LABS: Bacteria Urine None Seen /hpf; Non Pathogenic Casts 0-2; RBC Urine >100 /hpf (0-2); Squamous Epithelial Cell Urine None Seen /hpf (Few); WBC Urine >100 /hpf (0-3)
[2024-01-20 13:08] LABS: Add Urine Microscopic? YES; Appearance Urine Turbid (Clear); Bilirubin Urine 1+ (Negative); Blood Urine 3+ (Negative); Color Urine Red (Yellow); Glucose Urine UA Negative (Negative); Ketones Urine Negative (Negative); Leukocyte Esterase Ur 3+ LEU/UL (Negative); Nitrate Urine Negative (Negative); Protein Urine 3+ mg/dL (Negative); Specific Grav Ur 1.013 (1.001-1.035); Urobilinogen Urine 0.2 mg/dL (<2.0); pH Urine 5.5 (5.0-9.0)
[2024-01-20 14:24] VITALS: BP 115/82; PULSE 79; RESP 18; TEMP 36.9; O2SAT 98
[2024-01-20 15:29] LABS: Basophils Percent Auto 0.4 % (0.2-1.2); Eosinophils Absolute Auto 0.1 K/mm3 (0-0.3); Eosinophils Percent Auto 0.8 % (0-4.4); Hematocrit 43.5 % (42.0-52.0); Hemoglobin 14.5 g/dL (14.0-18.0); Immature Granulocyte Absolute 0.05 K/mm3 (0.00-0.031); Immature Granulocyte Percent A 0.6 % (0-0.5); Lymphocytes Absolute Auto 0.68 K/mm3 (0.9-3.2); Lymphocytes Percent Auto 7.6 % (18.3-44.2); Mean Corpuscular HGB Conc 33.3 g/dl (32-36); Mean Corpuscular Hemoglobin 30.9 pg (26-34); Mean Corpuscular Volume 92.8 fl (80-100); Mean Platelet Volume 9.8 fl (7.4-10.4); Monocytes Absolute Auto 0.9 K/mm3 (0.1-0.6); Monocytes Percent Auto 10.4 % (2.6-8.5); Neutrophils Absolute Auto 7.2 K/mm3 (1.3-6.7); Neutrophils Percent Auto 80.2 % (45.5-73.1); Platelet Count Result 177 k/mm3 (150-375); Red Blood Count 4.69 M/mm3 (4.6-6.20); Red Cell Distribution Width 12.5 % (11.5-14.5); White Blood Count 8.9 K/mm3 (4.5-10.0)
[2024-01-20 15:40] LABS: Alanine Aminotransferase 8 U/L (6-50); Albumin Level 3.8 g/dL (3.5-5.1); Alkaline Phosphatase 65 U/L (38-126); Anion Gap 3 mmol/L (4-12); Aspartate Amino Transferase 30 U/L (17-59); Bilirubin,Total 0.6 mg/dL (0.2-1.3); Blood Urea Nitrogen 11 mg/dL (9-20); Calcium 8.4 mg/dL (8.4-10.2); Carbon Dioxide 32 mmol/L (22-30); Chloride 104 mmol/L (98-107); Estimated CRCL calculation 67 ml/min; Estimated Glomerular Filt Rate > 60; Glucose 125 mg/dL (65-110); Potassium 3.9 mmol/L (3.4-5.0); Sodium 139 mmol/L (137-145)
--- NOTE | 2024-01-20 16:22 | ED.GENADULT ---
HPI - General Adult General Chief complaint: Urogenital-Male Stated complaint: hematuria Time Seen by Provider: 01/20/24 14:39 History of Present Illness HPI narrative: This is a 68-year-old male presenting ED with chief complaint of hematuria. Patient says over last 2 days he has developed blood in his urine and dysuria. He denies fevers chills nausea vomiting or diarrhea. Mild suprapubic pain. Related Data Home Medications Medication Instructions Recorded Confirmed ascorbic acid (vitamin C) 100 mg 100 mg PO DAILY 08/30/22 11/01/23 tablet qmpfeze-yiu-nmx [id number]-bfzhirnd 250 1 tablet PO BID 08/30/22 11/01/23 mg-40 mg-5 mg-125 unit tablet (Calcium Citrate Plus (pyridoxine)) cholecalciferol (vitamin D3) 50 50 mcg PO DAILY 08/30/22 11/01/23 mcg (2,000 unit) capsule (Vitamin D3) multivitamin with minerals-folic 0.4 tablet PO DAILY 08/30/22 11/01/23 acid 0.4 mg tablet carbidopa 25 mg-levodopa 100 mg 1 tablet PO TID 05/11/23 11/01/23 tablet amino acids tablet PO 08/06/23 11/01/23 Allergies Allergy/AdvReac Type Severity Reaction Status Date / Time No Known Allergies Allergy Verified 01/20/24 14:38 [facility] Past Medical History Medical History Abnormal CT scan, small bowel BMI 26.0-26.9,adult Brachial plexus injury, right Colon cancer screening Diarrhea Encounter for removal of sutures Epilepsy Essential hypertension Flu vaccine need Hypothyroidism, unspecified Irritable bowel syndrome with diarrhea Laceration of finger Lung contusion Mixed action and resting tremor Presence of brain neurostimulator device Surgical History Surgical History H/O prostatectomy Hx of tonsillectomy Family History Family History Sibling Family history of diabetes mellitus in first degree relative Cerebrovascular accident Father Family history of lung cancer Mother Low oxygen saturation Social History Social History Smoking status: Never smoker Second hand tobacco smoke exposure: No Alcohol intake: never Substance use: never Substance use type: does not use Do You Feel Safe in your Home?: Yes Lack of Transportation: No Lack of Food: Never True Current Housing: I Have Housing Concerned About Future Housing: No Difficulty Paying Gas/Electric Bills: No Difficulty Paying for Meds: No Currently Unemployed: No Education: High School Diploma/GED Difficulty w/ Childcare or Family Care: No Living arrangements: with family Occupation/Education: retired 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 Head: atraumatic. EYES: EOMI, NOSE: Atraumatic NECK: Trachea midline RESPIRATORY: No increased rate of breathing clear to auscultation CARDIOVASCULAR: RRR, ABDOMINAL: Soft nontender without guarding rebound MUSCULOSKELETAl: No obvious deformities NEURO: Alert. Moving 4/4 extremities SKIN:: Warm, dry. Normal color PSYCHIATRIC: Normal affect Course Vital Signs Vital signs: Vital Signs Temperature 97.3 F L 01/20/24 12:54 Pulse Rate 83 01/20/24 12:54 Respiratory Rate 18 01/20/24 12:54 Blood Pressure 140/67 01/20/24 12:54 Pulse Oximetry 99 01/20/24 12:54 Temperature 98.4 F 01/20/24 14:24 Pulse Rate 79 01/20/24 14:24 Respiratory Rate 18 01/20/24 14:24 Blood Pressure 115/82 01/20/24 14:24 Pulse Oximetry 98 01/20/24 14:24 Medical Decision Making [facility] Narrative Medical decision making narrative: -Course: 60-year-old male presenting with hematuria and urinary symptoms. Urine indicative of infection. CT showing cystitis but no nephrolithiasis. CT also showed some stable calcifications in some distended loops of bowel that could be a partial or early bowel obstruction. The patient does not have any abdominal pain and is not had any nausea or vomiting. No concern for bowel obstruction at this time. Patient is resting comfortably. He has stable vital signs. No white count or evidence of sepsis. Patient given a dose of ceftriaxone and will be discharged on cefdinir. Given return precautions for worsening infection or bowel obstruction. -DDX includes but is not limited to: Cystitis, UTI, infected stone -Co-morbidities complicating care: Epilepsy -Social determinants of health: Lives at home with his , denies drugs or alcohol -Independent interpretation of studies: Labs imaging reviewed White count 8.9. Urine indicative infection -Interventions: Ceftriaxone -Shared decision making / Disposition: Discharge -RX Cefdinir Vital Signs Vital Signs: Vital Signs Temperature 97.3 F L 01/20/24 12:54 Pulse Rate 83 01/20/24 12:54 Respiratory Rate 18 01/20/24 12:54 Blood Pressure 140/67 01/20/24 12:54 Pulse Oximetry 99 01/20/24 12:54 Temperature 98.4 F 01/20/24 14:24 Pulse Rate 79 01/20/24 14:24 Respiratory Rate 18 01/20/24 14:24 Blood Pressure 115/82 01/20/24 14:24 Pulse Oximetry 98 01/20/24 14:24 Lab Data 01/20/24 15:23 01/20/24 15:23 Labs: Lab Results 01/20/24 01/20/24 Range/Units 12:56 15:23 WBC 8.9 (4.5-10.0) K/mm3 RBC 4.69 (4.6-6.20) M/mm3 Hgb 14.5 (14.0-18.0) g/dL Hct 43.5 (42.0-52.0) % MCV 92.8 (80-100) fl MCH 30.9 (26-34) pg MCHC 33.3 (32-36) g/dl RDW 12.5 (11.5-14.5) % Plt Count 177 (150-375) k/mm3 MPV 9.8 (7.4-10.4) fl Immature Gran % (Auto) 0.6 H (0-0.5) % Neut % (Auto) 80.2 H (45.5-73.1) % Lymph % (Auto) 7.6 L (18.3-44.2) % Curry % (Auto) 10.4 H (2.6-8.5) % Eos % (Auto) 0.8 (0-4.4) % Baso % (Auto) 0.4 (0.2-1.2) % Lymph # (Auto) 0.68 L (0.9-3.2) K/mm3 Curry # (Auto) 0.9 H (0.1-0.6) K/mm3 Eos # (Auto) 0.1 (0-0.3) K/mm3 Baso # (Auto) 0.0 (0.0-0.1) K/mm3 Abs Immat Gran (auto) 0.05 H (0.00-0.031) K/mm3 Absolute Neuts (auto) 7.2 H (1.3-6.7) K/mm3 Absolute Nucleated RBC 0.000 (0.0-0.012) K/mm3 Nucleated RBC % 0.0 (0.0-0.2) % Sodium 139 (137-145) mmol/L Potassium 3.9 (3.4-5.0) mmol/L Chloride 104 (98-107) mmol/L Carbon Dioxide 32 H (22-30) mmol/L Anion Gap 3 L (4-12) mmol/L BUN 11 (9-20) mg/dL Creatinine 1.00 (0.7-1.3) mg/dL Estim Creat Clear Calc 67 ml/min Estimated GFR > 60 (59 - ) Glucose 125 H (65-110) mg/dL Calcium 8.4 (8.4-10.2) mg/dL Total Bilirubin 0.6 (0.2-1.3) mg/dL AST 30 (17-59) U/L ALT 8 (6-50) U/L Alkaline Phosphatase 65 (38-126) U/L Total Protein 6.0 L (6.3-8.2) g/dL Albumin 3.8 (3.5-5.1) g/dL Urine Color Red H (Yellow) Urine Appearance Turbid H (Clear) Urine pH 5.5 (5.0-9.0) Ur Specific [place] 1.013 (1.001-1.035) Urine Protein 3+ H (Negative) mg/dL Urine Glucose (UA) Negative (Negative) mg/dL Urine Ketones Negative (Negative) mg/dL Ur Blood (Man) 3+ H (Negative) Urine Nitrate Negative (Negative) Urine Bilirubin 1+ H (Negative) Urine Urobilinogen 0.2 (<2.0) mg/dL Leukocyte Esterase Rfl 3+ H (Negative) JESIKA/UL Urine RBC >100 H (0-2) /hpf Urine WBC >100 H (0-3) /hpf Ur Squamous Epith Cells None seen (Few) /hpf Urine Bacteria None seen /hpf Urine Casts 0-2 Discharge Plan Discharge Clinical Impression: Acute UTI Patient Disposition: Home, Self-Care Condition: Stable Instructions: Antibiotic Form, Urinary Tract Infection in Men (DC) Additional Instructions: Using emergency department for UTI. Please complete a course of cefdinir. Please follow-up with PCP in 1 week. Return to ED if you develop fevers, severe abdominal pain, nausea vomiting or your condition is getting worse. Prescriptions: New cefdinir 300 mg capsule 300 mg PO Q12H Qty: 14 0RF No Action carbidopa-levodopa 25-100 mg tablet 1 tablet PO TID amino acids Tablet PO levetiracetam 500 mg tablet 2,000 mg PO Q12H Qty: 9 0RF Rx Instructions: short supply since [facility]. aspirin 81 mg tablet,delayed release (DR/EC) 81 mg PO QAM Qty: 90 3RF loperamide 2 mg capsule 2 mg PO Q6H PRN (Reason: loose stool) Qty: 240 5RF Rx Instructions: take 4 mg with first loose stool, followed by 2 mg after each loose stool; maximum: 16 mg/day trazodone 50 mg tablet 100 mg PO .qhs Qty: 180 2RF levothyroxine 75 mcg tablet 75 mcg PO DAILY Qty: 90 3RF lisinopril 20 mg tablet See Rx Instructions .ROUTE .COMPLEX Qty: 90 1RF Dose Instruction: Take 1 tablet by mouth once daily Rx Instructions: Take 1 tablet by mouth once daily atorvastatin 40 mg tablet 40 mg PO DAILY Qty: 90 1RF oxybutynin chloride 15 mg tablet extended release 24hr See Rx Instructions .ROUTE .COMPLEX Qty: 90 0RF Dose Instruction: Take 1 tablet by mouth once daily Rx Instructions: Take 1 tablet by mouth once daily ascorbic acid (vitamin C) 100 mg Tablet 100 mg PO DAILY Calcium Citrate Plus (Vit B6) 836-03-6-125 cl-eb-ju-unit Tablet 1 tablet PO BID multivit with min-folic acid [Adult One Daily Multivitamin] 0.4 mg Tablet 0.4 tablet PO DAILY cholecalciferol (vitamin D3) [Vitamin D3] 50 mcg (2,000 unit) Capsule 50 mcg PO DAILY Follow-up/Referrals: Toño Izquierdo MD [Primary Care Provider] - 1 Week (UTI f/u)
[2024-01-20 16:53] VITALS: BP 116/77; PULSE 70; RESP 17; O2SAT 100
== END 2024-01-20 16:55 | disposition home or self-care (01) ==
PROVIDERS: Emergency Provider Emergency Medicine; PCP Family Medicine
DX: N39.0 Urinary tract infection, site not specified (principal); G40.909 Epilepsy, unspecified, not intractable, without status epilepticus; I10 Essential (primary) hypertension; E03.9 Hypothyroidism, unspecified; K58.0 Irritable bowel syndrome with diarrhea; Z96.82 Presence of neurostimulator; Z90.79 Acquired absence of other genital organ(s); Z79.899 Other long term (current) drug therapy
CPT/HCPCS: 36415; 74176; 80053; 81001; 85025; 87086; 96365; 99284; J0696

== ENCOUNTER 2024-03-19 08:24 | Outpatient (CLI) | payer MEDICARE, SELFPAY ==
--- NOTE | 2024-03-19 11:00 | NEURO_ITS ---
Impression: # Non diabetic with flexion contractures of the right hand at the interphalangeal joints ,Complains of numbness of right hand. ? # Mild ulnar neuropathy across the elbow. ? # No Carpal Tunnel Syndrome. # Needle/EMG exam with no denervation potentials. clinical correlation recommended. Nerve Conduction Studies Anti Sensory Summary Table ?Stim Site NR Peak (ms) P-T Amp (?V) Site1 Site2 Delta-P (ms) Dist (cm) Bari (m/s) Right Median Anti Sensory (2-3nd Digit) Wrist ? 3.4 8.0 Wrist 2-3nd Digit 3.4 14.0 41 Wrist ? 3.4 19.7 Wrist 2-3nd Digit 3.4 14.0 41 Right Radial Anti Sensory (Base 1st Digit) Wrist ? 2.9 15.3 Wrist Base 1st Digit 2.9 0.0 Right Ulnar Anti Sensory (5th Digit) Wrist ? 3.1 37.8 Wrist 5th Digit 3.1 14.0 45 Motor Summary Table ?Stim Site NR Onset (ms) O-P Amp (mV) Site1 Site2 Delta-0 (ms) Dist (cm) Bari (m/s) Right Median Motor (Abd Poll Brev) Wrist ? 3.4 3.0 Elbow Wrist 5.7 31.0 54 Elbow ? 9.1 2.7 Right Ulnar Motor (Abd Dig Minimi) Wrist ? 4.1 2.7 A Elbow Wrist 6.4 32.0 50 A Elbow ? 10.5 2.4 B Elbow Wrist 3.6 20.0 56 B Elbow ? 7.7 1.9 F Wave Studies ?NR F-Lat (ms) L-R F-Lat (ms) Right Median (Mrkrs) (Abd Poll Brev) ? 30.88 Right Ulnar (Mrkrs) (Abd Dig Min) ? 31.29 EMG ?Side Muscle Nerve Root Ins Act Fibs Amp Dur Recrt Comment Right 1stDorInt Ulnar C8-T1 Nml Nml Nml Nml +1 Right Ext Indicis Radial (Post Int) C7-8 Nml Nml Nml Nml +1 Right Ext Digitorum Radial (Post Int) C7-8 Nml Nml Nml Nml +1 Right PronatorTeres Median C6-7 Nml Nml Nml Nml +1 Right BrachioRad Radial C5-6 Nml Nml Nml Nml +1 Right Abd Poll Brev Median C8-T1 Nml Nml Nml Nml Nml Right ABD Dig Min Ulnar C8-T1 Nml Nml Nml Nml +1 Right Biceps Musculocut C5-6 Nml Nml Nml Nml Nml Right Triceps Radial C6-7-8 Nml Nml Nml Nml +1 Right Deltoid Axillary C5-6 Nml Nml Nml Nml Nml MTDD
== END 2024-03-19 08:25 | disposition home or self-care (01) ==
PROVIDERS: PCP Family Medicine; Visit Provider Plastic Surgery
DX: G56.21 Lesion of ulnar nerve, right upper limb (principal)
CPT/HCPCS: 95886; 95909